=== PATIENT | male | born 1960 | race Caucasian/White ===

== ENCOUNTER → 2016-04-14 | Outpatient (REF) | payer MEDICARE, MEDICAID ==
[2016-04-14 14:27] LABS: FOLATE 13.1 NG/ML
[2016-04-17 00:06] LABS: PROTEIN C ANTIGEN 128 % (60-150); PROTEIN S ANTIGEN FREE 149 % (57-157); PROTEIN S ANTIGEN TOTAL 195 % (60-150)
[2016-04-22 00:09] LABS: SJOGREN'S ANTI SS-A <0.2 AI (0.0-0.9); SJOGREN'S ANTI SS-B <0.2 AI (0.0-0.9)
== END ==
LOC: M LABNEURO 13:00
PROVIDERS: ATTEND Psychiatry & Neurology Neurology
DX: I63.9 Cerebral infarction, unspecified (principal)

== ENCOUNTER 2017-01-19 10:23 | Inpatient (IN) | payer MEDICARE, MEDICAID ==
[~2017-01-19] VITALS: Ht 179.1 cm; Wt 65.7 kg
[2017-01-19] MEDS ORDERED: MOM 30ML SUSPENSION UDC PO PRN (11:45)
[2017-01-19 13:55] VITALS: BP 136/79
[2017-01-19] MEDS ORDERED: PROT40IN4 IV (15:15)
[2017-01-19] MEDS ORDERED: ENOX40IN3 SC (15:15)
[2017-01-19] MEDS ORDERED: NICODIS TD (15:15)
[2017-01-19] MEDS ORDERED: ATOR80TA59 PO (15:15)
[2017-01-19] MEDS ORDERED: ACET1TAB17 PO (15:15)
[2017-01-19] MEDS ORDERED: ASPI1TAB PO (15:15)
[2017-01-19] MEDS ORDERED: HYDR20VL IV (15:15)
[2017-01-19] MEDS ORDERED: CLOP75TA2 PO (15:15)
[2017-01-19] MEDS ORDERED: NIFE90TA3 PO (15:15)
[2017-01-19] MEDS ORDERED: PANT40TA2 PO (15:36)
[2017-01-19] MEDS ORDERED: PRED10TA2 PO (15:36)
[2017-01-19] MEDS ORDERED: NORT25CA2 PO (15:36)
[2017-01-19 18:18] LABS: BASO % 0.3 % (0.0-1.0); EOS # 0.1 10^3/uL (0.0-0.50); IMMATURE GRANULOCYTE % 0.3 % (0-0); LYMPH # 1.2 10^3/uL (1.5-4.5); LYMPH % 17.7 % (24.0-44.0); MEAN CORPUSCULAR HEMOGLOBIN 29.3 pg (27.0-33.0); MEAN CORPUSCULAR HGB CONC 33.3 g/dl (32.0-36.5); MEAN CORPUSCULAR VOLUME 87.9 fl (80.0-96.0); MONO # 0.5 10^3/uL (0.0-0.8); MONO % 7.6 % (0.0-5.0); NEUTROPHILS # 5.1 10^3/uL (1.8-7.7); NEUTROPHILS % 73.1 % (36.0-66.0); PLATELET COUNT, AUTOMATED 195 10^3/uL (150-450); RED CELL DISTRIBUTION WIDTH 14.3 % (11.5-14.5)
[2017-01-19 18:43] LABS: ALBUMIN 2.6 GM/DL (3.2-5.2); ALKALINE PHOSPHATASE 79 U/L (45-117); ALT/SGPT 22 U/L (12-78); ANION GAP 7 MEQ/L (8-16); AST/SGOT 21 U/L (7-37); BILIRUBIN,TOTAL 0.2 MG/DL (0.2-1.0); BLOOD UREA NITROGEN 13 MG/DL (7-18); CALCIUM LEVEL 7.8 MG/DL (8.5-10.1); CARBON DIOXIDE LEVEL 26 MEQ/L (21-32); CHLORIDE LEVEL 106 MEQ/L (98-107); CREATININE FOR GFR 1.12 MG/DL (0.70-1.30); GLOMERULAR FILTRATION RATE > 60.0 (>56); GLUCOSE, FASTING 108 MG/DL (70-105); MAGNESIUM LEVEL 1.7 MG/DL (1.8-2.4); POTASSIUM SERUM 3.8 MEQ/L (3.5-5.1); SODIUM LEVEL 139 MEQ/L (136-145); TOTAL PROTEIN 6.3 GM/DL (6.4-8.2)
[2017-01-19 20:00] VITALS: BP 139/93
[2017-01-19] MEDS ORDERED: MAG SULF 1GM/100ML (MAG RUN) 1 GM in APPROPRIATE DILUENT 1 EA IV ONE (21:00)
[2017-01-19] MEDS ORDERED: NORCO, ANEXSIA 5/325MG TABLET (HYDROcodone/ACETAMINOPHEN) PO ONE (21:00)
[2017-01-19] MEDS: DOCUSATE SODIUM 100 MG CAP PO SCH (21:19)
[2017-01-19] MEDS: ATORVASTATIN 20 MG TAB PO SCH (21:19)
--- NOTE | 2017-01-19 22:32 | CR ---
DATE OF CONSULTATION: 01/19/2017 PRIMARY CARE PROVIDER: None locally. INPATIENT HOSPITALIST ATTENDING: Dr. Jorge Bell REFERRING PHYSICIAN: Dr. Oconnor REASON FOR CONSULTATION: Management of chronic issues. CHIEF COMPLAINT: Left sided weakness, gaze deviation. HISTORY OF PRESENT ILLNESS: This is a 56-year-old male with a prior history of pulmonary embolus, deep vein thrombosis (DVT), prostate cancer with prostatectomy, nephrectomy, status post urostomy bag, was on chronic aspirin at home and presented to [facility] at [facility] due to acute onset of left-sided weakness on 01/15/2017 at 1600 hours with gaze deviation, dysarthria that started at 1600 hours and noted by the . The patient was air lifted via [facility] air ambulance to [facility] with presenting blood pressure 160/100, glucose 92. The patient had previously had a right MCA frontal branch territorial infarct in April 2016 with multiple watershed infarcts and had left against medical advice from the stroke service at [facility], taken himself off Xarelto despite recommendations for life long anticoagulation. The patient was found to have occlusion of the right internal carotid artery from its origin throughout his cervical course, as well as occlusion at the right M1 MCA from its origin along the majority of its course. Blood pressure parameters were given for recannulization. Echocardiogram saline bubble study on 01/17/2017 showed negative saline bubble study, ejection fraction of 55 to 60%. Trace mild mitral regurgitation. Trace pulmonic regurgitation. Mild tricuspid regurgitation. The patient did undergo right ICA stenting with complication of right petrous ICA dissection. MRI showed right MCA infarct and blunted right cerebellar infarct with right basal ganglia hemorrhage, systolic goal at that time was 100 to 160. He continued to complain of headaches, which were treated symptomatically. He was placed on labetalol, hydralazine. Anticoagulation was held temporarily due to hemorrhage and size of infarct, but he was resumed on aspirin and Plavix. The patient was transferred from [facility] to Physical Medicine and Rehabilitation service at [facility] to continue with his rehabilitation in order to resume activities of daily living. Hospitalist service was consulted for management of chronic issues. PAST MEDICAL HISTORY: 1. PE. 2. DVT 3. History of prostate cancer, status post prostatectomy. 4. Nephrectomy, status post urostomy bag. 5. Right MCA frontal branch CVA in April 2016, left against medical advice. PAST SURGICAL HISTORY: 1. Nephrectomy on the right, status post urostomy in January 2017. The patient underwent ICA stenting complicated with a right petrous ICA dissection and right basal ganglia hemorrhage. SOCIAL HISTORY: The patient lives with his spouse. He has an 80-pack year history of smoking. Denies any recreational drug use or alcohol use. Two level home with four steps. The patient is disabled. He has five adult children, age 22 to 36. Able to receive 24/7 supervision at home. FAMILY HISTORY: Unknown. REVIEW OF SYSTEMS: Complains of headache that is diffuse and bifrontal, left sided weakness. Otherwise, 12-point system negative. PHYSICAL EXAMINATION: Temperature 97.4, pulse 70, respiratory rate 18, blood pressure 136/79, 98% on room air. GENERAL: Pupils are equal, round and reactive to light and accommodation. Clear conjunctivae. Moist mucous membranes. Trachea is midline. NECK: Supple. Normocephalic, atraumatic. LUNGS: Clear to auscultation. No wheezing, rales or rhonchi. HEART: S1, S2. Sinus rhythm ABDOMEN: Soft, nontender, nondistended. Positive bowel sounds. EXTREMITIES: No cyanosis or clubbing. NEUROLOGIC: Positive left Babinski. No clonus, conjugate gaze. Will not track past the left midline. 5/5 motor function on the right upper and lower extremities. The patient has left sided 0/5 motor function on the left upper and lower extremities. LABORATORY DATA: White count 7, hemoglobin 9.4, hematocrit 28, platelet count 195. Sodium 139, potassium 3.8, chloride 106, bicarbonate 26, BUN 13, creatinine 1.1, glucose 108, magnesium 1.7, calcium 7.8, total bilirubin 0.2, AST 21, ALT 22, alkaline phosphatase 79, albumin 2.6, TSH 2.24. ASSESSMENT AND PLAN: This is a 56-year-old male, right handed with history of hypertension, hyperlipidemia, hypercoagulable, PEE and DVT in the past, prostate cancer, status post prostatectomy, bladder cancer with chemotherapy, nephrectomy with urostomy, previous ischemic infarct in right MCA distribution, left against medical advice from [facility] in April 2016. [id number] history of smoking. Presented with left sided weakness, found to have extensive acute on chronic occlusion of right ICA, extending to the right MONSERRAT and M1, status post TPA at [facility] in [place] and [facility] with right ICA stenting with complication of right petrous ICA infection. MRI shows right MCA and MONSERRAT infarct, punctate right cerebellar infarct and right basal ganglia hemorrhage. The patient has been placed on 3% saline. Supportive care for his headaches. Ultrasound showed 59% occlusion of stent. He was given labetalol, hydralazine for blood pressure control. Started on aspirin and Plavix for anticoagulation. Echo was negative for atrial thrombus. TSH and A1/c were unremarkable. The patient was started on atorvastatin, 80 mg daily. The patient was transferred to acute rehabilitation at [facility]. The hospitalist was asked to consult on chronic issues. CURRENT ISSUES: 1. Acute ischemic stroke with right basal ganglia hemorrhage Chronic MCA encephalomalacia. Chronic headaches.Right ICA MCA occlusion status post VERONICA with ICA stenting, stenosis of ICA stents. Etiology of the stroke was a large thrombus due to hypercoagulable state. Status post TPA on 01/15/2017. Status post MRE on 01/15/2017. Ultrasound Doppler on 01/16/2017 shows 50 to 69% occlusion of the stent. The patient was given labetalol/hydralazine for blood pressure control and was started on aspirin and Plavix. Echo was negative for PFO/atrial thrombus. He was placed on atorvastatin 80 mg daily. Continue with physical therapy (PT) and occupational therapy (OT). 2. Hypertension. Stable. Currently 136 systolic. Currently on Procardia 90 mg daily. 3. [id number] history of smoking. No prior history of emphysema or COPD. Significant risk factor for CVA with gas exchange. If needed oxygen if saturations are 88%, may provide with nasal cannula and nebulizer if he develops wheezing. 4. History of prostate cancer with prostatectomy, status post chemotherapy and nephrectomy with subsequent urostomy. The patient's creatinine is stable. Avoid nephrotoxins and renally dose all medications. 5. Hyperlipidemia. continue statin DVT prophylaxis: lovenox subcutaneously. The patient will be assigned to Dr. Jorge Bell, who will assist with medical issues while the patient is in acute rehabilitation. JAMMIE
[2017-01-20] MEDS: ACETAMINOPHEN TAB 650MG DOSE (2X325MG) PO PRN ×3 (03:41→21:05)
[2017-01-20 06:00] VITALS: BP 128/82
[2017-01-20 07:16] LABS: BASO % 0.4 % (0.0-1.0); EOS # 0.2 10^3/uL (0.0-0.50); EOS % 2.7 % (0.0-3.0); IMMATURE GRANULOCYTE % 0.4 % (0-0); LYMPH # 1.8 10^3/uL (1.5-4.5); LYMPH % 23.5 % (24.0-44.0); MEAN CORPUSCULAR HEMOGLOBIN 29.3 pg (27.0-33.0); MEAN CORPUSCULAR HGB CONC 33.4 g/dl (32.0-36.5); MEAN CORPUSCULAR VOLUME 87.7 fl (80.0-96.0); MONO # 0.7 10^3/uL (0.0-0.8); MONO % 8.6 % (0.0-5.0); NEUTROPHILS # 4.9 10^3/uL (1.8-7.7); NEUTROPHILS % 64.4 % (36.0-66.0); PLATELET COUNT, AUTOMATED 209 10^3/uL (150-450); RED CELL DISTRIBUTION WIDTH 14.3 % (11.5-14.5); WHITE BLOOD COUNT 7.5 10^3/uL (4.0-10.0)
[2017-01-20 07:42] LABS: ALBUMIN 2.7 GM/DL (3.2-5.2); ALBUMIN/GLOBULIN RATIO 0.71 (1.00-1.93); ALKALINE PHOSPHATASE 79 U/L (45-117); ALT/SGPT 29 U/L (12-78); ANION GAP 10 MEQ/L (8-16); AST/SGOT 30 U/L (7-37); BILIRUBIN,TOTAL 0.3 MG/DL (0.2-1.0); BLOOD UREA NITROGEN 13 MG/DL (7-18); CALCIUM LEVEL 8.3 MG/DL (8.5-10.1); CARBON DIOXIDE LEVEL 24 MEQ/L (21-32); CHLORIDE LEVEL 107 MEQ/L (98-107); CREATININE FOR GFR 1.21 MG/DL (0.70-1.30); GLOMERULAR FILTRATION RATE > 60.0 (>56); GLUCOSE, FASTING 95 MG/DL (70-105); POTASSIUM SERUM 3.8 MEQ/L (3.5-5.1); SODIUM LEVEL 141 MEQ/L (136-145); TOTAL PROTEIN 6.5 GM/DL (6.4-8.2)
[2017-01-20] MEDS: NYSTATIN 500,000 U/5 ML SUSP UDC SSP SCH ×3 (09:00→21:04)
[2017-01-20] MEDS: DOCUSATE SODIUM 100 MG CAP PO SCH ×2 (09:00→21:00)
[2017-01-20] MEDS: ENOXAPARIN 40 MG/0.4 ML SYRINGE (J1650) SC SCH (09:14)
[2017-01-20] MEDS: CLOPIDOGREL 75 MG TAB PO SCH (09:15)
[2017-01-20] MEDS: NIFEdipine 30 MG XL TAB PO SCH (09:15)
[2017-01-20] MEDS: ASPIRIN 81 MG ENTERIC TAB PO SCH (09:15)
[2017-01-20] MEDS: PANTOPRAZOLE 40MG TAB (PROTONIX) PO SCH (09:15)
--- NOTE | 2017-01-20 11:29 | PMRHPE ---
DATE OF ADMISSION: 01/19/2017 REASON FOR ADMISSION: Right middle cerebral artery cerebrovascular accident (CVA ) treated with tPA on 01/15/2017 with secondary watershed intraparenchymal hemorrhage including basal ganglia causing dysphagia, dysarthria, left sensory motor deficits. HISTORY OF PRESENT ILLNESS: The patient is a 56-year-old white male who has been disabled by multiple medical problems. This right-handed gentleman had prior right MCA stroke in April of 2016, atherosclerotic cardiovascular disease, also including hypertension, hyperlipidemia. The patient also with prior bladder cancer and prostate cancer with prostatectomy and nephrostomy performed and prior carotid artery disease with a stent which occluded. The patient has started in physical, occupational and speech therapy. He does have some dysphagia with troubles having sensation in the left mouth with left facial droop, right tongue deviation, left sensory neglect as well as left hemiparesis with returning tone. He was felt to be able to participate in and benefit from acute intensive rehabilitation with physical therapy (PT)/occupational therapy (OT) and speech therapy and was transferred here today for neurorehabilitation of his CVA. FAMILY HISTORY: Noncontributory. SOCIAL HISTORY: The patient lives with his and foster children. Prior to this event he was able to perform basic activities of daily living (ADLs). He does not use tobacco, alcohol or illicit drugs, however, has been challenged by clotting disorder. ALLERGIES: Patient with no known drug allergies. REVIEW OF SYSTEMS: Negative except for symptoms noted above and chronic headache on the top of his head with some relief with analgesics and heating pad. MEDICATIONS ON ADMISSION: - Protonix 40 mg daily - enteric coated aspirin 81 mg a day - Plavix 75 mg daily - Procardia XL 90 mg daily - Lovenox 40 mg subcutaneous daily - Colace 100 mg twice a day - atorvastatin 80 mg at bedtime - Dulcolax depository I am changing to Dulcolax tablet as needed constipation - milk of magnesia as needed constipation - Tylenol 650 mg every 6 hours as needed for pain or fever PHYSICAL EXAMINATION: GENERAL: The patient is an average height, 5 foot 10-1/2 inch tall, with a slight frame and lowly muscled middle-aged gentleman, he weights 64 kg. He is alert and well oriented and tends to lean and lay on his left side, which is his paretic side. He is in minimal distress other than his sensory motor deficits. HEENT: Shows a left facial droop, right tongue deviation. The patient tends to gaze straight ahead and to the right principally. He does show some tracking to the left at this time. He tends to lean to the left and roll onto the left side when left to himself. NECK: supple, nontender. LUNGS: Clear to auscultation in all edge. COR: Shows a regular rate and rhythm with normal S1, S2. The patient with 2 out of 4 bilateral radial pulses. ABDOMEN: Shows the urinary ostomy site and collection bag, but is nontender with normal bowel sounds throughout. EXTREMITIES: Show good normal tone, strength and range on the right upper and lower extremities with early tone in the left shoulder and elbow, hip and knee, but marked weakness distally in the 1 to 2-/5 range, but proximal showing 3+ for the shoulder, elbow, hip and knee on the left. Hands 4+ to 5, stronger on the right. NEURO: The patient with some decrease in light touch and vibration in the left side. Left UE & LE show increased tone and some neglected. Mood has a little bit of flattening. ASSESSMENT AND PLAN: Diagnosis: 1. Rehabilitation of right middle cerebral artery CVA. Treated with tPA, with secondary watershed infarct. This has left patient with dysarthria, dysphagia, left hemiparesis with early tone and proximal recovery, but notable neglect to the left. Patient also with decreased awareness and tendency to pocket secretions to the left and with facial droop has drooling. I feel patient would benefit from acute intensive rehabilitation with physical, occupational, speech therapy with ongoing education of patient and family from rehabilitation, nurse and physiatry. I think the patient needs neuromuscular facilitation of the left upper and lower extremity with cuing and training to address attention and awareness of the left side and protect it due to the sensory deficits and agnosia/neglect. Some elements on the left though patient does seem to be able to recognize the left upper and lower extremity as he is able to voluntary motor with them. Patient currently on NDDI-1 diet and he reports that speech was about to advance him to soft foods versus pureed. Records and patient both agree that he is using thin liquids. Overall I do feel the patient is motivated and capable of participating in the program and anticipate a 17 day estimated length of stay. 2. Bladder cancer, status post diverting nephrostomy and prostatectomy with prostate cancer. Will continue with using nephrostomy drainage. 3. Clotting disorder. The patient has had repeated deep venous thrombosis (DVT), pulmonary embolism (PE), and at least two CVAs as well as including a carotid stent. Needs to be on significant treatment for this. I will continue the Lovenox, Plavix and aspirin at this time. The patient was recommended to transition off the Lovenox going home to just the Plavix and aspirin. This management of clots will help with the DVTs along with use of thromboembolism deterrent (RIGO) hose and sequential stockings. 4. Atherosclerotic cardiovascular disease. I will go ahead and continue the Procardia XL 90 for hypertension and atorvastatin 80 mg for cholesterol control. To assist in the management of this gentleman, medicine consult has been sent. POST ADMISSION PHYSICIAN EVALUATION: The patient is doing better than general description in chart showing significant early motor recovery in the left upper and lower extremity in a proximal to distal fashion. I do feel he is highly motivated to return home with his and more adaptive compensations as he has had to do before with prior illness and deficits from his cancers as well as the prior CVA. I do feel he is capable of tolerating participation three hours a day of physical, occupational and speech therapy and that his prognosis for returning home is good with the family with an estimated length of stay of 17 days. Time spent on chart review, HPI and documentation is greater than 70 minutes. JAMMIE
--- NOTE | 2017-01-20 12:11 | IPNPDOC ---
PM&R Progress Note Regulatory Internship Progress Note DATE OF SERVICE: 01/20/17 DATE OF ADMISSION: Jan 19, 2017 at 13:45 INPATIENT REHABILITATION ADMISSION DAY: #2 SUBJECTIVE: The patient is a 56-year-old white male who has been disabled by multiple medical problems. This right-handed gentleman had prior right MCA stroke in April of 2016, atherosclerotic cardiovascular disease, also including hypertension, hyperlipidemia. The patient also with prior bladder cancer and prostate cancer with prostatectomy and nephrostomy performed and prior carotid artery disease with a stent which occluded. The patient has started in physical, occupational and speech therapy. He does have some dysphagia with troubles having sensation in the left mouth with left facial droop, right tongue deviation, left sensory neglect as well as left hemiparesis with returning tone. Patient without significant pain or other complaints today. ALLERGIES: See Below MEDICATIONS: Reviewed, see below. OBJECTIVE: VITAL SIGNS: Please see below. PHYSICAL EXAMINATION: GENERAL: Average height slight middle-age white male who looks older than stated age of 56. Patient still tending to lean to the left with some left neglect. It appears to be in no other distress. HEENT: Left facial droop with right tongue deviation but atraumatic. CARDIOVASCULAR: Regular rate and rhythm with normal S1 and S2. 2/4 bilateral radial pulses. LUNGS: [place] clear to auscultation. ABDOMEN: Benign with normal bowel sounds in all quadrants and nephrostomy bag in place. NEUROLOGICAL: Alert and oriented to person, place, general time and situation. No significant change in left hemiparesis. SKIN: Grossly intact LABORATORY DATA: Reviewed. Please see below. MICROBIOLOGY: Please see below. IMAGING: No new imaging. DVT prophylaxis ordered?: Lovenox, aspirin, RIGO hose and sequential compressive stockings. ASSESSMENT AND PLAN: 1. Rehabilitation of CVAs with left hemisensory motor deficits: Patient starting evaluations today with physical, occupational and speech foreign language professor all achieved. We will review the patient further at rehabilitation team rounds this afternoon. My estimated length of stay is 17 days. REHAB. TEAM ROUNDS: The patient is having notable left visual spacial problems and desires to remain in bed too much. We will work to increase him being up and having to attend to the left and use mirrors to reinforce left awareness. Patient reviewed by team today and Anticipated Date of Discharge to home with family is 02/04/17. Please see initial therapy evaluations attached below. 2. Mild anemia with H&H of 9.8 and 29.4% today on 01/20/17. We will continue to observe. 3. Hypo-magnesemia: Patient received 1 g of magnesium IV last night. I will go ahead and recheck magnesium tomorrow along with a basic metabolic panel. Medicine services to continue to follow. 4. Nutrition: Albumin is reduced to 2.7 so we will see how patient is doing on eating and he may possibly benefit from Ensure. TIME SPENT: Chart Review, examination and documentation require greater than 25 minutes. Patient: Enrique Guadalupe : 1960 Age/Sex: 56/M Unit#: [id number] Room/Bed: [place] [address] User: Gaby Corona OT OT Date: 01/20/17 14:37 Type: OT Evaluation Time In * 09:30 Time Out * 10:35 OT Treatment Time-Minutes * 65 mins Type of Therapy Provided * Individual Unit * Acute Inpatient Rehab Occupational Therapy Evaluation * Initial Diagnosis * R MCA CVA, R hemiparesis/sens, dysarthria Doctor's Order * Evaluation & Treatment Doctor's Order Details * Eval and treat 1.5 hours per day. 5 days per week. History of Present Illness * Pt air lifted to [facility] due to weakness/dysarthria. Pt found to have right middle cerebral artery cerebrovascular accident (CVA) treated with tPA on 01/15/2017 with secondary watershed intraparenchymal hemorrhage including basal ganglia causing dysphagia, dysarthria, left sensory motor deficits. Precautions * Fall * Other Other Precautions * L neglect Subjective * Pt supine upon OT arrival, agreeable to eval. Prior to admission Pt was Independent ADL's * Yes Prior to Admission Other Assist Pt Required * Pt reports he was independent with all ADL/IADL at baseline, including driving. Pain: Start of Session * 3 Pain Assessment Label * Head * Description Ache * Pain Note Pt c/o headache, stating warm K-pad improves pain. Upper Extremity Dominance * Right Range of Motion Assessment Label * Bilateral Shoulder Elbow Wrist * Active or Passive Active * ROM Within Normal Limits Within Functional Limits * Comment RUE WNL, LUE WFL to 90 deg. shldr flex Muscle Tone Assessment Label * Bilateral * Comment Increased Strength Assessment Label * Left * Upper Extremity Strength Location Shoulder Elbow Wrist * Upper Extremity Status Strength 3-/5 * Comment: RUE 4-/5 Movement Assessment Label * Left * Upper Extremity Status Gross Motor Within Functional Limits * Other-Upper Extremity Status Gross Motor RUE WNL; LUE increasing gross motor throughout LUE- able to flex shoulder to ~90 degrees, elbow WFL with limited coordination, minimal hand/finger function throughout median nerve distribution Upper Body Muscle Tone Label * Left * Upper Extremity Status Fine Motor Impaired * Other-Upper Extremity Status Fine Motor RUE WNL, LUE digits 3-5 trace strength Sensation Assessment Label * Bilateral * Upper Extremity Status Sensation Within Normal Limits Edema Present * No Eating (Feeding) * Minimum Assist Grooming (Hygiene) * Minimum Assist Bathing * Moderate Assist Dressing-Upper Body * Minimum Assist Dressing-Lower Body * Minimum Assist Toileting * Total Assist Toilet/Commode Transfer * Minimum Assist Transfers * Minimum Assist Bed Mobility * Standby Assist Wheelchair * Maximum Assist ADL Status Note * Pt transferred supine to sit EOB with VCs to attend to LUE/LLE placement due to decreased awareness of L side. Pt completed sit<>stand and stand pivot to w/c toward R side with min assist for safety. Pt then self propelled w/c with min/mod assist to bathroom, ~15'. In bathroom, pt completed sponge bathing- pt able to wash chest, abdomen, LUE, ronnie area, and thighs. Pt requires assist for washing RUE, distal LEs, and buttocks in standing with min assist due to L lateral lean while up. Pt completed sit<>stand at sink with CGA initially, though fatigues quickly, requiring increased assist to maintain standing. UB dressing- pt able to thread LUE with minimal assistance, then able to thread LUE and pull overhead. LB dressing- pt requires minimal assistance to thread LLE into pants, though able to thread RLE into pants, and requires min assist to stand to pull up pants. Pt able to brush teeth with set-up initially, though demonstrates mod/max spillage, requiring increased assist to clean up following task. Pt able to wash face with set-up only. Pt asking to return to supine throughout evaluation, requiring ongoing encouragement/education re: role of OT and importance of EOB/OOB activity. Pt then attempted to self propel w/c toward room/EOB, though requires max assist to complete task due to L neglect. Pt transferred w/c to EOB with min assist and sit EOB to supine with CGA. Pt declines scooting toward HOB and states he would prefer to lay in middle of bed. Ongoing education re: safety. Pt requires assist x2 to boost to HOB. All needs met, call light in reach. Bell in room to empty urostomy for pt. A. Eating (include only those with PO intake): * 04.Sup/Touch Assist Eating Comments: * See ADL note. B. Oral Hygiene (includes gums in edentulous pts): * 04.Sup/Touch Assist Oral Hygiene Comments: * See ADL note. C. Toileting Hygiene (not transfers): * 01.Dependent Toileting Hygiene Comments: * See ADL note. E. Shower/Bathe Self (not transfers, can be sponge bath): * 03.Partial/Mod Assist Shower/Bathe Self Comments: * See ADL note. F. Upper Body Dressing (includes bra, not hospital gown): * 04.Sup/Touch Assist Upper Body Dressing Comments: * See ADL note. G. Lower Body Dressing (includes briefs and knee braces): * 04.Sup/Touch Assist Lower Body Dressing Comments: * See ADL note. H. Putting on/taking off footwear (includes TEDS and AFO): * 02.Substantial/Max Assist Putting on/taking off footwear Comments: * See ADL note. Sitting: Static * G- Sitting: Dynamic * F+ Standing: Static * F Standing: Dynamic * F Functional Endurance * Good Living Quarters * House Number of Steps Inside Home * 0 Number of Steps Outside Home * 5 Other Home Accessibility Comments * Pt reports his family is installing full bathroom on 1st floor with walk-in shower, vs current 1/2 bath on 1st floor. Pt reports family will move his bedroom to 1st floor, as it is previously in basement. Visual Acuity * Impaired Visual Spatial * Impaired Hearing * Intact Right/Left Neglect * Present Midline * Impaired Proprioceptive/Kinesthesia * Impaired Orientation * Intact Memory * Impaired Attention * Intact Follows Commands * Intact Safety Awareness * Impaired Problem Solving * Impaired Behavior/Affect * Intact Motivation * Intact Family/Support * Intact Perception/Cognition/Psychosocial Comment * Pt A&Ox3, polite and cooperative with encouragement/education throughout evaluation. 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 Discharge Recommendations * Home w/services Occupational Therapy Evaluation Notes * Pt demonstrates significantly decreased independence from baseline due to recent MCA CVA. Pt will benefit from ongoing skilled OT to maximize independence with ADL, functional transfers, safety awareness, strengthening, and visual perceptual skills for safe d/c to least restrictive environment. OT Recommendations * OOB all meals, encourage OOB throughout the day for increased strength/endurance. See Acute In-Patient Rehab POC * Yes OT Interventions * Functional Training * Safety/Precautions * D/C Needs * HEP * ADL Training * Bed Mobility * Therapeutic Exercise * Balance Activities * Pt/Family Education Patient Education Completed * Yes Patient: Enrique Guadalupe : 1960 Age/Sex: 56/M Unit#: [id number] Room/Bed: M4144/01 User: Juan Lee, PT PT Date: 01/20/17 11:13 Type: PT Evaluation Time In * 11:10 Time Out * 11:55 PT Treatment Time-Minutes * 45 mins Physical Therapy Evaluation * Initial Type of Therapy Provided * Individual Diagnosis * ischemic Rt MCA stroke Doctor's Order * Evaluation & Treatment Doctor's Order Detail * Activity per PT/OT History of Present Illness * Patient was admitted on 01/19/17. Patient's medical history is charted and was reviewed. Subjective * Patient is agreeble to PT evaluation. Patient was supine resting in bed prior to session. joined at beginning of evaluation. Precautions * Fall Unit * Acute Inpatient Rehab Prior to Admission Pt Independent with Gait * Yes Prior to Admission Patient Lives * With Significant Other Prior to Admission Pt Lives with Comment * lives with Prior to Admission Assistive Devices * Cane * Walker,Wheeled Prior to Admission Other Assist Pt Requires * Patient reports he has access to a cane and a 2WW at home, however was completely independent prior to admission. Indepedent with all activities. Pain: Start of Session * 2 Pain Comment * Patient reports 2/10 pain in his head, does not change throughout evaluation. Pain Assessment Label * Head * Description Ache Upper Extremity ROM Label * Right Shoulder Elbow Wrist Fingers * Active or Passive Active * ROM Within Normal Limits Within Funct. Limits * Upper Extremity ROM Comment decreased Lt UE AROM. Lower Extremity ROM Label * Bilateral Hip Knee Ankle * Active or Passive Active * ROM Within Normal Limits Within Functional Limits Upper Extremity Strength Label * Right * Upper Extremity Status Strength Location Shoulder Elbow Wrist Radius Grinder * Upper Extremity Status Strength Within Funct. Limits * Upper Extremity Strength Comment Lt UE strength decreased, see OT evaluation. Lower Extremity Strength Label * Right Hip Knee Ankle * Lower Extremity Status Strength 4/5 * Lower Extremity Status Strength Comment Lt hip: 3+/5 knee flex/ext: 3+/5 ankle DF/PF: 3+/5 Sensation Assessment Label * Left * Sensation Status Impaired * Other Sensation LE: Patient reports "it feels different" Lt compared to the Rt side however is able feel dermatomes on the Lt. Bathing * Not Tested Dressing * Not Tested Toileting * Not Tested Transfer: Supine to Sit * Contact Guard Assist Transfer: Sit to Supine * Contact Guard Assist Transfer: Rolling * Not Tested Transfer: Sit to Stand * Minimum Assist Transfer: Stand to Sit * Contact Guard Assist Transfer: Bed to Chair * Minimum Assist Transfer: Chair to Bed * Minimum Assist Transfer: Toilet/Commode * Not Tested Transfer Comment * CGA for bed mobility, min A for sit to stand, CGA for stand to sit transfer and min A bed to chair transfer. Patient is mildly impulsive throughout. Stand pivot performed to the Rt side x2. Blocked Lt LE for stand pivot transfer for safety as Lt knee margo in standing. Gait Deviations * Ambulation was not appropriate this session as patient has difficulty shifting weight onto Lt LE. Proprioception is also impaired with Lt LE. Wheelchair Distance * 50 feet Wheelchair Mobility Level of Assist * Moderate Assist Wheelchair Mobility Comment * Mod A for safety as patient is consistently turning too much to the Lt, decreased safety awareness. Stair Skills Required * Yes Level of Assist for Stairs * Not Tested Stairs Comment * Not appropriate this date. A. Roll Left and Right: * 04.Sup/Touch Assist B. Sit to Lying: * 04.Sup/Touch Assist C. Lying to Sitting on Side of Bed: * 04.Sup/Touch Assist D. Sit to Stand: * 04.Sup/Touch Assist E. Chair/Pim-sd-Jsufi Transfer: * 03.Partial/Mod Assist F. Toilet Transfer: * 88.Not Attempted G. Car Transfer: * 88.Not Attempted H. Does the patient walk?: * 1. No, indicated I. Walk 10 Feet: * 88.Not Attempted J. Walk 50' with Two Turns: * 88.Not Attempted K. Walk 150 Feet: * 88.Not Attempted L. Walking 10' on uneven surfaces: * 88.Not Attempted M. 1 Step (curb): * 88.Not Attempted N. 4 Steps (with or without railing): * 88.Not Attempted O. 12 Steps (with or without railing): * 88.Not Attempted P. Picking up Object from the Floor (from a standing): * 88.Not Attempted Q. Does the patient use a w/c (other than just transport): * 1. Yes R. Wheel 50' with 2 Turns(seated in w/c): * 03.Partial/Mod Assist RR. What type of w/c?: * 1. Manual S. Wheel 150' (seated in w/c): * 88.Not Attempted SS. What type of w/c?: * 1. Manual Sitting: Static * G- Sitting: Dynamic * F+ Standing: Static * F+ Standing: Dynamic * F Functional Balance Comment * Sitting balance assessed sitting at EOB, standing balance assessed standing at RW. Patient has difficulty weight shifting onto Lt LE, knee margo. Decreased safety awareness in standing and decreased proprioception. Patient has difficulty maintaining documentation spec on walker with Lt UE. Living Quarters * House Number of Steps Inside Home * 15 Number of Steps Outside Home * 3 Railing: Outside Steps * Both Sides Equipment at Home * Rolling Walker * Cane Other Equipment Needs for Home * will continue to assess Other Home Accessibility Comments * reports that they plan to move him down to the main floor so he will not have to access full flight of stairs. Hearing * Intact Orientation * Person * Place * Date Memory * Intact Follows Commands * Impaired Safety Awareness * Impaired Family Support * Intact Perception/Cognition/Psychosocial Comment * is very supportive. Mild impulsivity, decreased safety awareness. Requires redirecting throughout to stay on task. Coordination * Impaired Coordination Comment * Impaired with Lt LE Home Safety Status * Not Safe Patient Not Safe for Discharge Due to * impaired functional mobility Discharge Recommendations * Home w/services Physical Therapy Evaluation Note * Patient demonstrates impaired functional mobility. Patient gets agitated in sitting, continues to ask to go back to bed throughout evaluation. Patient demonstrates decreased proprioception with the Lt LE, decreased safety awareness, was not appropriate to attempt ambulation this date. Patient will benefit from skilled therapy services to address the above listed impairments. Patient was supine resting in bed with call finn in reach following PT evaluation. Nurse, Nelli medina. PT Recommendations * Stand pivot to the Rt, block Lt LE, use gait belt. OOB to chair for all meals. See Acute In-Patient Rehab POC * Yes PT Interventions * Gait Training * Wheelchair Mobility * Therapeutic Excercise * Functional Training * Bed Mobility * Balance Activities * Safety/Precautions * HEP * Pt./Family Education * D/C Needs * Neuro Re-Education Patient Education Completed * Yes Patient: Enrique Guadalupe : 1960 Age/Sex: 56/M Unit#: [id number] Room/Bed: M4144/01 User: Etelvina Dinh [facility] Date: 01/20/17 10:41 Type: ST: Clinical Swallowing Evalua... History * CVA/TIA Other History * CVA April 2016 Bladder cancer Verbal expression * Adequate Verbal Expression Comment * dysarthric production d/t hx of /r/ distortion and weak right side. Intelligibily is adequate Able to follow commands * Adequate Cognition * Functional * Cooperative Cognition Comment * slight memory deficit Nutrition/Intake method * Total Oral Feeding status * Independent Current diet * Puree * Thin liquid Oral Structures * Teeth in Poor Repair Face and lip function * Impaired * Decreased ROM * Decreased Strength * Decreased lip rounding Tongue function * Decreased Strength Left * Deviates (L)/ Protrusion Velar functioning * Adequate Laryngeal function * Adequate Speech Clarity * Good Thin Liquids - Oral stage difficulties * None Thin Liquids - Pharyngeal stage difficulties * None Suspected Thin Liquids - Severity of impairment * Adequate Puree - Oral stage difficulties * None Puree - Pharyngeal stage difficulties * None Suspected Puree - Severity * WFL Aspiration Risk * Moderate Problem List * significant decreased sensation in the left oral cavity. Noted anterior spillage on the left Recommended Diet * Pureed Recommended Liquids * Regular/Thin Liquid Recommended positioning * Upright Recommended Oral Care * Three Times per Day Recommended compensatory strategies * Bolus Placement Right * Alternate Liq w/Solids Recommend Dysphagia Therapy * Yes Other Recommendations * Meds placed on the right side in puree assist followed by liquid wash. consider something for possible thrush After Evaluation/Treatment Report Provided to: * Dr. Duke and ARU Team Patient: Enrique Guadalupe : 1960 Age/Sex: 56/M Unit#: [id number] Room/Bed: M4144/01 User: Etelvina Dinh [facility] Date: 01/20/17 11:10 Type: ST: Cognitive Linguistic Eval Location of Evaluation * Bedside Cognitive Communication Evaluation Components * Chart Review * Patient Review * Non-Standard Testing Other Evaluation Components * BCAT Oral Motor/Speech Skills WFL * No - left side weakness w/dysarthric speech production Hearing WFL * Yes Clinical Observations * Vision Impaired * Oriented * Alert * Socially Appropriate Cognitive-Communication: Other Clinical Observations * Pt. reports blind in left eye. Throughout testing, Pt. had a difficult time seeing stimulus items. Commented that he stills drives Behavioral Observation Comment * easily fatigued Patient Orientation * Adequate Pragmatics * WFL Cognitive-Communication Memory Comment * decreased working memory and short term memory Reasoning * WFL Executive Function * Dec. Judgement Cognitive-Communication: Other Executive Function * rpts driving with familiarity of his surroundings knowing eyesight is poor Severity of Cognitive-Communication Deficit * Mild Recommendations * Sp. Tx for Cog-Comm Skill After Evaluation/Treatment Report Provided to: * Dr. Duke and ARU Team Allergies Coded Allergies: No Known Allergies (Unverified , 01/19/17) Vital Signs Vital Signs Date Time Temp Pulse Resp B/P (MAP) Pulse Ox O2 Delivery O2 Flow Rate FiO2 01/20/17 09:15 128/82 01/20/17 06:00 97.8 71 18 98 Room Air Laboratory Data CBC/BMP Laboratory Tests 01/19/17 18:01 Red Blood Count 3.21 L, Mean Corpuscular Volume 87.9, Mean Corpuscular Hemoglobin 29.3, Mean Corpuscular Hemoglobin Concent 33.3, Red Cell Distribution Width 14.3, Neutrophils (%) (Auto) 73.1 H, Lymphocytes (%) (Auto) 17.7 L, Monocytes (%) (Auto) 7.6 H, Eosinophils (%) (Auto) 1.0, Basophils (%) ( Auto) 0.3, Neutrophils # (Auto) 5.1, Lymphocytes # (Auto) 1.2 L, Monocytes # ( Auto) 0.5, Eosinophils # (Auto) 0.1, Basophils # (Auto) 0.0, Calcium Level 7.8 L , Aspartate Amino Transf (AST/SGOT) 21, Alanine Aminotransferase (ALT/SGPT) 22, Alkaline Phosphatase 79, Total Bilirubin 0.2, Total Protein 6.3 L, Albumin 2.6 L 01/20/17 06:58 Red Blood Count 3.34 L, Mean Corpuscular Volume 87.7, Mean Corpuscular Hemoglobin 29.3, Mean Corpuscular Hemoglobin Concent 33.4, Red Cell Distribution Width 14.3, Neutrophils (%) (Auto) 64.4, Lymphocytes (%) (Auto) 23.5 L, Monocytes (%) (Auto) 8.6 H, Eosinophils (%) (Auto) 2.7, Basophils (%) ( Auto) 0.4, Neutrophils # (Auto) 4.9, Lymphocytes # (Auto) 1.8, Monocytes # (Auto ) 0.7, Eosinophils # (Auto) 0.2, Basophils # (Auto) 0.0, Calcium Level 8.3 L, Aspartate Amino Transf (AST/SGOT) 30, Alanine Aminotransferase (ALT/SGPT) 29, Alkaline Phosphatase 79, Total Bilirubin 0.3, Total Protein 6.5, Albumin 2.7 L Labs 24H Laboratory Tests 2 01/19/17 18:01: Immature Granulocyte % (Auto) 0.3H, White Blood Count 7.0, Red Blood Count 3.21L , Hemoglobin 9.4L, Hematocrit 28.2L, Mean Corpuscular Volume 87.9, Mean Corpuscular Hemoglobin 29.3, Mean Corpuscular Hemoglobin Concent 33.3, Red Cell Distribution Width 14.3, Platelet Count 195, Neutrophils (%) (Auto) 73.1H, Lymphocytes (%) (Auto) 17.7L, Monocytes (%) (Auto) 7.6H, Eosinophils (%) (Auto) 1.0, Basophils (%) (Auto) 0.3, Neutrophils # (Auto) 5.1, Lymphocytes # (Auto) 1.2L, Monocytes # (Auto) 0.5, Eosinophils # (Auto) 0.1, Basophils # (Auto) 0.0, Immature Granulocyte # (Auto) 0.0, Nucleated Red Blood Cells % (auto) 0.0, Anion Gap 7L, Glomerular Filtration Rate > 60.0, Blood Urea Nitrogen 13, Creatinine 1.12, Sodium Level 139, Potassium Level 3.8, Chloride Level 106, Carbon Dioxide Level 26, Calcium Level 7.8L, Aspartate Amino Transf (AST/SGOT) 21, Alanine Aminotransferase (ALT/SGPT) 22, Alkaline Phosphatase 79, Total Bilirubin 0.2, Total Protein 6.3L, Albumin 2.6L, Magnesium Level 1.7L, Albumin/ Globulin Ratio 0.70L, Thyroid Stimulating Hormone (TSH) 2.240 01/20/17 06:58: Immature Granulocyte % (Auto) 0.4H, White Blood Count 7.5, Red Blood Count 3.34L , Hemoglobin 9.8L, Hematocrit 29.3L, Mean Corpuscular Volume 87.7, Mean Corpuscular Hemoglobin 29.3, Mean Corpuscular Hemoglobin Concent 33.4, Red Cell Distribution Width 14.3, Platelet Count 209, Neutrophils (%) (Auto) 64.4, Lymphocytes (%) (Auto) 23.5L, Monocytes (%) (Auto) 8.6H, Eosinophils (%) (Auto) 2.7, Basophils (%) (Auto) 0.4, Neutrophils # (Auto) 4.9, Lymphocytes # (Auto) 1.8, Monocytes # (Auto) 0.7, Eosinophils # (Auto) 0.2, Basophils # (Auto) 0.0, Immature Granulocyte # (Auto) 0.0, Nucleated Red Blood Cells % (auto) 0.0, Anion Gap 10, Glomerular Filtration Rate > 60.0, Blood Urea Nitrogen 13, Creatinine 1.21, Sodium Level 141, Potassium Level 3.8, Chloride Level 107, Carbon Dioxide Level 24, Calcium Level 8.3L, Aspartate Amino Transf (AST/SGOT) 30, Alanine Aminotransferase (ALT/SGPT) 29, Alkaline Phosphatase 79, Total Bilirubin 0.3, Total Protein 6.5, Albumin 2.7L, Albumin/Globulin Ratio 0.71L Current Medications Current Medications Current Medications Acetaminophen (Tylenol Tab) 650 mg Q6HP PRN PO PAIN OR FEVER Last administered on 01/20/17 03:41; Start 01/19/17 at 11:45; Stop 02/18/17 at 11:44 Aspirin (Ecotrin) 81 mg DAILY PO Last administered on 01/20/17 09:15; Start 01/20/17 at 09:00; Stop 02/19/17 at 08:59 Atorvastatin Calcium (Lipitor) 80 mg QHS PO Last administered on 01/19/17 21: 19; Start 01/19/17 at 21:00; Stop 02/18/17 at 20:59 Bisacodyl (Dulcolax Tab) 5 mg DAILYPRN PRN PO CONSTIPATION; Start 01/19/17 at 11:45; Stop 02/18/17 at 11:44 Clopidogrel Bisulfate (PLAVix) 75 mg DAILY PO Last administered on 01/20/17 09:15; Start 01/20/17 at 09:00; Stop 02/19/17 at 08:59 Docusate Sodium (Colace) 100 mg BID PO Last administered on 01/19/17 21:19; Start 01/19/17 at 21:00; Stop 02/18/17 at 20:59 Enoxaparin Sodium (Lovenox) 40 mg DAILY SC Last administered on 01/20/17 09: 14; Start 01/20/17 at 09:00; Stop 01/25/17 at 08:59 Home Med (Med Rec Complete!) ASDIRECTED XX ; Start 01/19/17 at 15:45; Stop at 15:47; Status DC Magnesium Hydroxide (Milk Of Magnesia) 30 ml DAILYPRN PRN PO CONSTIPATION; Start 01/19/17 at 11:45; Stop 02/18/17 at 11:44 Nifedipine (Procardia Xl) 90 mg DAILY PO Last administered on 01/20/17 09:15 ; Start 01/20/17 at 09:00; Stop 02/19/17 at 08:59 Nystatin (Mycostatin) 5 ml TID SSP ; Start 01/20/17 at 09:00; Stop 01/26/17 at 23:55 Pantoprazole Sodium (Protonix) 40 mg DAILY PO Last administered on 01/20/17 09:15; Start 01/20/17 at 09:00; Stop 02/19/17 at 08:59 SUJIT DUKE MD Jan 20, 2017 12:11
[2017-01-20 14:00] VITALS: BP 131/67
[2017-01-20] MEDS ORDERED: SLF 3 ML SYR IV PRN (15:15)
[2017-01-20 20:00] VITALS: BP 114/62
[2017-01-20] MEDS: ATORVASTATIN 20 MG TAB PO SCH (21:05)
[2017-01-20] MEDS: SLF 3 ML SYR IV SCH (22:00)
[2017-01-21] MEDS: ACETAMINOPHEN TAB 650MG DOSE (2X325MG) PO PRN ×2 (03:40→12:47)
[2017-01-21 06:00] VITALS: BP 123/74
[2017-01-21] MEDS: SLF 3 ML SYR IV SCH ×3 (06:22→21:43)
[2017-01-21] MEDS: NIFEdipine 30 MG XL TAB PO SCH (08:56)
[2017-01-21] MEDS: DOCUSATE SODIUM 100 MG CAP PO SCH ×2 (08:56→21:39)
[2017-01-21] MEDS: ASPIRIN 81 MG ENTERIC TAB PO SCH (08:57)
[2017-01-21] MEDS: NYSTATIN 500,000 U/5 ML SUSP UDC SSP SCH ×3 (08:57→21:40)
[2017-01-21] MEDS: PANTOPRAZOLE 40MG TAB (PROTONIX) PO SCH (08:57)
[2017-01-21] MEDS: ENOXAPARIN 40 MG/0.4 ML SYRINGE (J1650) SC SCH (08:57)
[2017-01-21] MEDS: CLOPIDOGREL 75 MG TAB PO SCH (08:57)
[2017-01-21] MEDS: MAGNESIUM OXIDE 400 MG TAB (MAG-OX) PO SCH ×2 (09:00→21:40)
--- NOTE | 2017-01-21 13:34 | IPNPDOC ---
PM&R Progress Note Occasional Caregiver Progress Note DATE OF SERVICE: 01/21/17 DATE OF ADMISSION: Jan 19, 2017 at 13:45 INPATIENT REHABILITATION ADMISSION DAY: #3 SUBJECTIVE: The patient is a 56-year-old white male who has been disabled by multiple medical problems. This right-handed gentleman had prior right MCA stroke in April of 2016, atherosclerotic cardiovascular disease, also including hypertension, hyperlipidemia. The patient also with prior bladder cancer and prostate cancer with prostatectomy and nephrostomy performed and prior carotid artery disease with a stent which occluded. The patient has started in physical, occupational and speech therapy. He does have some dysphagia with troubles having sensation in the left mouth with left facial droop, right tongue deviation, left sensory neglect as well as left hemiparesis with returning tone. Patient concerned with headache mainly on top of head and not feeling help from the Tylenol. I will add Tramadol. ALLERGIES: See Below MEDICATIONS: Reviewed, see below. OBJECTIVE: VITAL SIGNS: Please see below. PHYSICAL EXAMINATION: GENERAL: Average height slight middle-age white male who looks older than stated age of 56. Patient still tending to lean to the left with some left neglect. It appears to be in no other distress. HEENT: Left facial droop with right tongue deviation but atraumatic. CARDIOVASCULAR: Regular rate and rhythm with normal S1 and S2. 2/4 bilateral radial pulses. LUNGS: Penn clear to auscultation. ABDOMEN: Benign with normal bowel sounds in all quadrants and nephrostomy bag in place. NEUROLOGICAL: Alert and oriented to person, place, general time and situation. Continued return of tone in Left U&LE with more forearm and leg musculature. Still left neglect and some agnosia problems. SKIN: Grossly intact LABORATORY DATA: Reviewed. Please see below. MICROBIOLOGY: Please see below. IMAGING: No new imaging. DVT prophylaxis ordered?: Lovenox, aspirin, RIGO hose and sequential compressive stockings. ASSESSMENT AND PLAN: 1. Rehabilitation of CVAs with left hemisensory motor deficits: Patient starting evaluations today with physical, occupational and speech second language tutor all achieved. Patient is showing improved left UE control and strength with some hand extrinsic motions. His left neglect/agnosia is better, but still a major limiter of this gentleman. Anticipated Date of Discharge to home with family is 02/04/17. 2. Mild anemia with H&H of 9.8 and 29.4% today on 01/20/17. We will continue to observe. 3. Hypo-magnesemia: Patient received 1 g of magnesium IV last night. Mg++ level is 1.9 today which is normal range.I will go ahead and recheck magnesium Tuesday morning along with a comprehensive metabolic panel. I am starting the patient on Magnesium Oxide 400mg bid for the next few days instead of IV Magnesium. Medicine services to continue to follow. 4. Nutrition: Albumin is reduced to 2.7 so we will see how patient is doing on eating and he may possibly benefit from Ensure. TIME SPENT: Chart Review, examination and documentation require greater than 25 minutes. Allergies Coded Allergies: No Known Allergies (Unverified , 01/19/17) Vital Signs Vital Signs Date Time Temp Pulse Resp B/P (MAP) Pulse Ox O2 Delivery O2 Flow Rate FiO2 01/21/17 08:56 123/74 01/21/17 06:00 98.8 77 18 96 Room Air Laboratory Data Labs 24H Laboratory Tests 2 01/21/17 07:11: Magnesium Level 1.9 Current Medications Current Medications Current Medications Acetaminophen (Tylenol Tab) 650 mg Q6HP PRN PO PAIN OR FEVER Last administered on 01/21/17 12:47; Start 01/19/17 at 11:45; Stop 02/18/17 at 11:44 Aspirin (Ecotrin) 81 mg DAILY PO Last administered on 01/21/17 08:57; Start 01/20/17 at 09:00; Stop 02/19/17 at 08:59 Atorvastatin Calcium (Lipitor) 80 mg QHS PO Last administered on 01/20/17 21: 05; Start 01/19/17 at 21:00; Stop 02/18/17 at 20:59 Bisacodyl (Dulcolax Tab) 5 mg DAILYPRN PRN PO CONSTIPATION; Start 01/19/17 at 11:45; Stop 02/18/17 at 11:44 Clopidogrel Bisulfate (PLAVix) 75 mg DAILY PO Last administered on 01/21/17 08:57; Start 01/20/17 at 09:00; Stop 02/19/17 at 08:59 Docusate Sodium (Colace) 100 mg BID PO Last administered on 01/21/17 08:56; Start 01/19/17 at 21:00; Stop 02/18/17 at 20:59 Enoxaparin Sodium (Lovenox) 40 mg DAILY SC Last administered on 01/21/17 08: 57; Start 01/20/17 at 09:00; Stop 01/27/17 at 23:55 Home Med (Med Rec Complete!) ASDIRECTED XX ; Start 01/19/17 at 15:45; Stop at 15:47; Status DC Magnesium Hydroxide (Milk Of Magnesia) 30 ml DAILYPRN PRN PO CONSTIPATION; Start 01/19/17 at 11:45; Stop 02/18/17 at 11:44 Magnesium Oxide (Mag-Ox) 400 mg BID PO Last administered on 01/21/17 09:00; Start 01/21/17 at 09:00; Stop 01/25/17 at 08:59 Nifedipine (Procardia Xl) 90 mg DAILY PO Last administered on 01/21/17 08:56 ; Start 01/20/17 at 09:00; Stop 02/19/17 at 08:59 Nystatin (Mycostatin) 5 ml TID SSP Last administered on 01/21/17 08:57; Start 01/20/17 at 09:00; Stop 01/26/17 at 23:55 Pantoprazole Sodium (Protonix) 40 mg DAILY PO Last administered on 01/21/17 08:57; Start 01/20/17 at 09:00; Stop 02/19/17 at 08:59 Sodium Chloride (Saline Lock Flush) 2 ml ASDIRECTED PRN IV SEE LABEL COMMENTS; Start 01/20/17 at 15:15; Stop 02/19/17 at 15:14 Sodium Chloride (Saline Lock Flush) 2 ml SLF IV Last administered on 06:22; Start 01/20/17 at 22:00; Stop 02/19/17 at 21:59 Tramadol HCl (Ultram) 50 mg Q4HP PRN PO PAIN (PS 5-10); Start 01/21/17 at 13: 00; Stop 01/28/17 at 12:59 SUJIT DUKE MD Jan 21, 2017 13:34
[2017-01-21 14:07] VITALS: BP 121/72
[2017-01-21] MEDS: traMADol 50 MG TAB PO PRN ×2 (14:45→21:43)
[2017-01-21 20:30] VITALS: BP 132/65
[2017-01-21] MEDS: ATORVASTATIN 20 MG TAB PO SCH (21:39)
[2017-01-22 05:00] VITALS: BP 151/90
[2017-01-22] MEDS: SLF 3 ML SYR IV SCH ×3 (05:14→22:00)
[2017-01-22 06:00] LABS: MEAN CORPUSCULAR HEMOGLOBIN 29.5 pg (27.0-33.0); MEAN CORPUSCULAR HGB CONC 33.3 g/dl (32.0-36.5); MEAN CORPUSCULAR VOLUME 88.5 fl (80.0-96.0); PLATELET COUNT, AUTOMATED 264 10^3/uL (150-450); RED CELL DISTRIBUTION WIDTH 14.1 % (11.5-14.5); WHITE BLOOD COUNT 10.1 10^3/uL (4.0-10.0)
[2017-01-22] MEDS: ASPIRIN 81 MG ENTERIC TAB PO SCH (08:35)
[2017-01-22] MEDS: NYSTATIN 500,000 U/5 ML SUSP UDC SSP SCH ×3 (08:35→20:58)
[2017-01-22] MEDS: NIFEdipine 30 MG XL TAB PO SCH (08:36)
[2017-01-22] MEDS: MAGNESIUM OXIDE 400 MG TAB (MAG-OX) PO SCH ×2 (08:36→20:58)
[2017-01-22] MEDS: CLOPIDOGREL 75 MG TAB PO SCH (08:36)
[2017-01-22] MEDS: PANTOPRAZOLE 40MG TAB (PROTONIX) PO SCH (08:36)
[2017-01-22] MEDS: ENOXAPARIN 40 MG/0.4 ML SYRINGE (J1650) SC SCH (08:36)
[2017-01-22] MEDS: traMADol 50 MG TAB PO PRN ×2 (08:37→20:58)
[2017-01-22] MEDS: DOCUSATE SODIUM 100 MG CAP PO SCH ×2 (08:37→20:58)
[2017-01-22 14:00] VITALS: BP 105/55
[2017-01-22] MEDS: ATORVASTATIN 20 MG TAB PO SCH (20:58)
[2017-01-22 21:00] VITALS: BP 141/72
[2017-01-23 05:25] VITALS: BP 159/98
[2017-01-23] MEDS: SLF 3 ML SYR IV SCH (05:26)
[2017-01-23] MEDS: NYSTATIN 500,000 U/5 ML SUSP UDC SSP SCH ×3 (10:30→20:57)
[2017-01-23] MEDS: CLOPIDOGREL 75 MG TAB PO SCH (10:30)
[2017-01-23] MEDS: MAGNESIUM OXIDE 400 MG TAB (MAG-OX) PO SCH ×2 (10:30→20:57)
[2017-01-23] MEDS: NIFEdipine 30 MG XL TAB PO SCH (10:30)
[2017-01-23] MEDS: ASPIRIN 81 MG ENTERIC TAB PO SCH (10:30)
[2017-01-23] MEDS: PANTOPRAZOLE 40MG TAB (PROTONIX) PO SCH (10:30)
[2017-01-23] MEDS: DOCUSATE SODIUM 100 MG CAP PO SCH ×2 (10:30→20:51)
[2017-01-23] MEDS: ENOXAPARIN 40 MG/0.4 ML SYRINGE (J1650) SC SCH (10:31)
[2017-01-23] MEDS: traMADol 50 MG TAB PO PRN ×2 (10:31→20:58)
[2017-01-23 14:00] VITALS: BP 134/73
[2017-01-23] MEDS: ATORVASTATIN 20 MG TAB PO SCH (20:57)
[2017-01-23 21:00] VITALS: BP 137/85
[2017-01-24 06:20] VITALS: BP 165/94
[2017-01-24 07:48] LABS: ALBUMIN 2.9 GM/DL (3.2-5.2); ALBUMIN/GLOBULIN RATIO 0.63 (1.00-1.93); ALKALINE PHOSPHATASE 94 U/L (45-117); ALT/SGPT 68 U/L (12-78); ANION GAP 9 MEQ/L (8-16); AST/SGOT 44 U/L (7-37); BILIRUBIN,TOTAL 0.3 MG/DL (0.2-1.0); BLOOD UREA NITROGEN 20 MG/DL (7-18); CALCIUM LEVEL 8.9 MG/DL (8.5-10.1); CARBON DIOXIDE LEVEL 26 MEQ/L (21-32); CHLORIDE LEVEL 106 MEQ/L (98-107); GLOMERULAR FILTRATION RATE > 60.0 (>56); GLUCOSE, FASTING 99 MG/DL (70-105); POTASSIUM SERUM 4.1 MEQ/L (3.5-5.1); SODIUM LEVEL 141 MEQ/L (136-145); TOTAL PROTEIN 7.5 GM/DL (6.4-8.2)
[2017-01-24] MEDS: ASPIRIN 81 MG ENTERIC TAB PO SCH (08:11)
[2017-01-24] MEDS: CLOPIDOGREL 75 MG TAB PO SCH (08:11)
[2017-01-24] MEDS: MAGNESIUM OXIDE 400 MG TAB (MAG-OX) PO SCH (08:12)
[2017-01-24] MEDS: NIFEdipine 30 MG XL TAB PO SCH (08:12)
[2017-01-24] MEDS: PANTOPRAZOLE 40MG TAB (PROTONIX) PO SCH (08:13)
[2017-01-24] MEDS: NYSTATIN 500,000 U/5 ML SUSP UDC SSP SCH ×3 (08:13→21:02)
[2017-01-24] MEDS: ENOXAPARIN 40 MG/0.4 ML SYRINGE (J1650) SC SCH (08:14)
[2017-01-24] MEDS: DOCUSATE SODIUM 100 MG CAP PO SCH ×2 (08:15→21:00)
--- NOTE | 2017-01-24 13:03 | IPNPDOC ---
Date Seen The patient was seen on 01/24/17. Progress Note HPI: This is a 56-year-old male with a prior history of pulmonary embolus, deep vein thrombosis (DVT), prostate cancer with prostatectomy, nephrectomy, status post urostomy bag, was on chronic aspirin at home and presented to [facility] due to acute onset of left-sided weakness on 01/15/2017 at 1600 hours with gaze deviation, dysarthria that started at 1600 hours and noted by the . The patient was air lifted via [facility] air ambulance to [facility] with presenting blood pressure 160/100, glucose 92. The patient had previously had a right MCA frontal branch territorial infarct in April 2016 with multiple watershed infarcts and had left against medical advice from the stroke service at [facility], taken himself off Xarelto despite recommendations for life long anticoagulation. The patient was found to have occlusion of the right internal carotid artery from its origin throughout his cervical course, as well as occlusion at the right M1 MCA from its origin along the majority of its course. The patient did undergo right ICA stenting with complication of right petrous ICA dissection. The pt was subsequently transferred to the care of AMARA Byrd 01/19/17. Denies any fevers, chills, weakness, fatigue, Headache, Chest Pain, Shortness of breath, cough, palpitations, abdominal pain, N/V/D or changes in bowel or bladder habits. PAST MEDICAL HISTORY: 1. PE. 2. DVT 3. History of prostate cancer, status post prostatectomy. 4. Nephrectomy, status post urostomy bag. 5. Right MCA frontal branch CVA in April 2016, left against medical advice. 6. Echocardiogram saline bubble study on 01/17/2017 showed negative saline bubble study, ejection fraction of 55 to 60%. Trace mild mitral regurgitation. Trace pulmonic regurgitation. Mild tricuspid regurgitation. 7. MRI [facility] showed right MCA infarct and blunted right cerebellar infarct with right basal ganglia hemorrhage PAST SURGICAL HISTORY: 1. Nephrectomy on the right, status post urostomy in January 2017. The patient underwent ICA stenting complicated with a right petrous ICA dissection and right basal ganglia hemorrhage. PE: GEN: 56yoM, appears older than stated age. Flat affect, does not respond to questions at times. HEENT: Normocephalic, atraumatic. Sclera are nonicteric. Conjunctiva without injection. Nose midline. No facial asymmetry. Moist mucous membranes. Pharynx pink and moist. Neck supple, trachea midline. No lymphadenopathy or thyromegaly appreciated. CHEST: Regular rate and rhythm, +S1, +S2 LUNGS: Clear to auscultation bilaterally. No wheezes, rales, or rhonchi. Breathing appears symmetric and easy. ABD: Round, soft, non-tender, non-distended. +Bowel sounds throughout. No rebound or guarding. No costovertebral angle tenderness. EXT: No lower extremity edema appreciated. SKIN: Rosalie, dry, warm. No rashes. NEURO: Alert and oriented x 3. LUE/LLE weakness. A&P: This is a 56-year-old male with a prior history of pulmonary embolus, deep vein thrombosis (DVT), prostate cancer with prostatectomy, nephrectomy, status post urostomy bag, was on chronic aspirin at home and presented to [facility] due to acute onset of left-sided weakness on 10/2016 at 1600 hours with gaze deviation, dysarthria that started at 1600 hours and noted by the . The patient was air lifted via [facility] air ambulance to [facility] with presenting blood pressure 160/100 , glucose 92. The patient had previously had a right MCA frontal branch territorial infarct in April 2016 with multiple watershed infarcts and had left against medical advice from the stroke service at [facility], taken himself off Xarelto despite recommendations for life long anticoagulation. The patient was found to have occlusion of the right internal carotid artery from its origin throughout his cervical course, as well as occlusion at the right M1 MCA from its origin along the majority of its course. The patient did undergo right ICA stenting with complication of right petrous ICA dissection. 1. Acute ischemic stroke with right basal ganglia hemorrhage Chronic MCA encephalomalacia. Chronic headaches. Right ICA MCA occlusion status post VERONICA with ICA stenting, stenosis of ICA stents. Etiology of the stroke was a large thrombus due to hypercoagulable state. Status post TPA on 01/15/2017. Status post MRE on 01/15/2017. Ultrasound Doppler on 01/16/2017 shows 50 to 69% occlusion of the stent. The patient was given labetalol/hydralazine for blood pressure control Pt placed on aspirin and Plavix daily. DVT prophylaxis. Lovenox as per ARU attending. PT/OT/ST as per ARU, Dr Oconnor. Pain control and Bowel care as per AMARA Byrd. 2. HTN. Nifedipine. 3. History of prostate cancer with prostatectomy, status post chemotherapy and nephrectomy with subsequent urostomy. The patient's creatinine is stable. Avoid nephrotoxins and renally dose all medications. 4. Hyperlipidemia. Continue high dose statin. 5. GERD. PPI. VS, I&O, 24H, Fishbone Vital Signs/I&O Vital Signs Date Time Temp Pulse Resp B/P (MAP) Pulse Ox O2 Delivery O2 Flow Rate FiO2 01/24/17 06:20 98.0 75 16 165/94 (117) 95 Room Air I&O- Last 24 Hours up to 6 AM 01/25/17 06:00 Intake Total 120 ml Output Total 500 ml Balance -380 ml Laboratory Data 24H LABS Laboratory Tests 2 01/24/17 07:02: Anion Gap 9, Glomerular Filtration Rate > 60.0, Blood Urea Nitrogen 20H, Creatinine 1.10, Sodium Level 141, Potassium Level 4.1, Chloride Level 106, Carbon Dioxide Level 26, Calcium Level 8.9, Aspartate Amino Transf (AST/SGOT) 44H, Alanine Aminotransferase (ALT/SGPT) 68, Alkaline Phosphatase 94, Total Bilirubin 0.3, Total Protein 7.5, Albumin 2.9L, Magnesium Level 2.0, Albumin/ Globulin Ratio 0.63L CBC/BMP Laboratory Tests 01/24/17 07:02 Calcium Level 8.9, Aspartate Amino Transf (AST/SGOT) 44 H, Alanine Aminotransferase (ALT/SGPT) 68, Alkaline Phosphatase 94, Total Bilirubin 0.3, Total Protein 7.5, Albumin 2.9 L Dahlia Garcia Jan 24, 2017 13:03
[2017-01-24 14:22] VITALS: BP 128/66
--- NOTE | 2017-01-24 19:42 | IPNPDOC ---
PM&R Progress Note Airplane Mechanic Apprentice Progress Note DATE OF SERVICE: 01/24/17 DATE OF ADMISSION: Jan 19, 2017 at 13:45 INPATIENT REHABILITATION ADMISSION DAY: #6 SUBJECTIVE: The patient is a 56-year-old white male who has been disabled by multiple medical problems. This right-handed gentleman had prior right MCA stroke in April of 2016, atherosclerotic cardiovascular disease, also including hypertension, hyperlipidemia. The patient also with prior bladder cancer and prostate cancer with prostatectomy and nephrostomy performed and prior carotid artery disease with a stent which occluded. The patient has started in physical, occupational and speech therapy. He does have some dysphagia with troubles having sensation in the left mouth with left facial droop, right tongue deviation, left sensory neglect as well as left hemiparesis with returning tone. Patient starting to decline some therapies. I have reviewed with him his situation as not yet being able to go home safely with his and needing to become more Left body aware and safe in mobility and ADL's, otherwise he will need a safe placement. Patient agrees to participate in the ARU 3 hrs/day program. ALLERGIES: See Below MEDICATIONS: Reviewed, see below. OBJECTIVE: VITAL SIGNS: Please see below. PHYSICAL EXAMINATION: GENERAL: Average height slight middle-age white male who looks older than stated age of 56. Patient still tending to lean to the left with some left neglect. It appears to be in no other distress. HEENT: Left facial droop with right tongue deviation but atraumatic. CARDIOVASCULAR: Regular rate and rhythm with normal S1 and S2. 2/4 bilateral radial pulses. LUNGS: Penn clear to auscultation. ABDOMEN: Benign with normal bowel sounds in all quadrants and nephrostomy bag in place. NEUROLOGICAL: Alert and oriented to person, place, general time and situation. Continued return of tone in Left U&LE with more forearm and leg musculature. Still left neglect and some agnosia problems. SKIN: Grossly intact LABORATORY DATA: Reviewed. Please see below. MICROBIOLOGY: Please see below. IMAGING: No new imaging. DVT prophylaxis ordered?: Lovenox, aspirin, RIGO hose and sequential compressive stockings. ASSESSMENT AND PLAN: 1. Rehabilitation of CVAs with left hemisensory motor deficits: Patient starting evaluations today with physical, occupational and speech manager language all achieved. Patient is showing improved left UE control and strength with some hand extrinsic motions. His left neglect/agnosia is better, but still a major limiter of this gentleman. REHAB. TEAM ROUNDS: Patient's complaints of fatigue and not wanting to do the 3 hours as well as not seeing his deficits and need to participate in the program were discussed in Team and addressed with him. He may need some mood and energy assistance. I will look at Ritalin trial. He needs to increase oral fluids as BUN 20 today. Anticipated Date of Discharge to home with family is 02/04/17. 2. Mild anemia with H&H of 10.0 and 30.0% today on 01/24/17. We will continue to observe. 3. Hypo-magnesemia: Patient received 1 g of magnesium IV last night. Mg++ level is 2.0 today which is normal range. I am continuing the patient on Magnesium Oxide 400mg Daily. Medicine services to continue to follow. 4. Nutrition: Albumin is reduced to 2.9 so we will see how patient is doing on eating and he may possibly benefit from Ensure. TIME SPENT: Chart Review, examination and documentation require greater than 25 minutes. Allergies Coded Allergies: No Known Allergies (Unverified , 01/19/17) Vital Signs Vital Signs Date Time Temp Pulse Resp B/P (MAP) Pulse Ox O2 Delivery O2 Flow Rate FiO2 01/24/17 14:22 98.7 86 18 128/66 (86) 95 Room Air Laboratory Data CBC/BMP Laboratory Tests 01/24/17 07:02 Calcium Level 8.9, Aspartate Amino Transf (AST/SGOT) 44 H, Alanine Aminotransferase (ALT/SGPT) 68, Alkaline Phosphatase 94, Total Bilirubin 0.3, Total Protein 7.5, Albumin 2.9 L Labs 24H Laboratory Tests 2 01/24/17 07:02: Anion Gap 9, Glomerular Filtration Rate > 60.0, Blood Urea Nitrogen 20H, Creatinine 1.10, Sodium Level 141, Potassium Level 4.1, Chloride Level 106, Carbon Dioxide Level 26, Calcium Level 8.9, Aspartate Amino Transf (AST/SGOT) 44H, Alanine Aminotransferase (ALT/SGPT) 68, Alkaline Phosphatase 94, Total Bilirubin 0.3, Total Protein 7.5, Albumin 2.9L, Magnesium Level 2.0, Albumin/ Globulin Ratio 0.63L Current Medications Current Medications Current Medications Acetaminophen (Tylenol Tab) 650 mg Q6HP PRN PO PAIN OR FEVER Last administered on 01/21/17 12:47; Start 01/19/17 at 11:45; Stop 02/18/17 at 11:44 Aspirin (Ecotrin) 81 mg DAILY PO Last administered on 01/24/17 08:11; Start 01/20/17 at 09:00; Stop 02/19/17 at 08:59 Atorvastatin Calcium (Lipitor) 80 mg QHS PO Last administered on 01/23/17 20: 57; Start 01/19/17 at 21:00; Stop 02/18/17 at 20:59 Bisacodyl (Dulcolax Tab) 5 mg DAILYPRN PRN PO CONSTIPATION; Start 01/19/17 at 11:45; Stop 02/18/17 at 11:44 Clopidogrel Bisulfate (PLAVix) 75 mg DAILY PO Last administered on 01/24/17 08:11; Start 01/20/17 at 09:00; Stop 02/19/17 at 08:59 Docusate Sodium (Colace) 100 mg BID PO Last administered on 01/23/17 10:30; Start 01/19/17 at 21:00; Stop 02/18/17 at 20:59 Enoxaparin Sodium (Lovenox) 40 mg DAILY SC Last administered on 01/24/17 08: 14; Start 01/20/17 at 09:00; Stop 01/27/17 at 23:55 Home Med (Med Rec Complete!) ASDIRECTED XX ; Start 01/19/17 at 15:45; Stop at 15:47; Status DC Magnesium Hydroxide (Milk Of Magnesia) 30 ml DAILYPRN PRN PO CONSTIPATION; Start 01/19/17 at 11:45; Stop 02/18/17 at 11:44 Magnesium Oxide (Mag-Ox) 400 mg BID PO Last administered on 01/24/17 08:12; Start 01/21/17 at 09:00; Stop 01/25/17 at 08:59 Nifedipine (Procardia Xl) 90 mg DAILY PO Last administered on 01/24/17 08:12 ; Start 01/20/17 at 09:00; Stop 02/19/17 at 08:59 Nystatin (Mycostatin) 5 ml TID SSP Last administered on 01/24/17 15:29; Start 01/20/17 at 09:00; Stop 01/26/17 at 23:55 Pantoprazole Sodium (Protonix) 40 mg DAILY PO Last administered on 01/24/17 08:13; Start 01/20/17 at 09:00; Stop 02/19/17 at 08:59 Sodium Chloride (Saline Lock Flush) 2 ml ASDIRECTED PRN IV SEE LABEL COMMENTS; Start 01/20/17 at 15:15; Stop 01/23/17 at 10:32; Status DC Sodium Chloride (Saline Lock Flush) 2 ml SLF IV Last administered on 14:00; Start 01/20/17 at 22:00; Stop 01/23/17 at 10:32; Status DC Tramadol HCl (Ultram) 50 mg Q4HP PRN PO PAIN (PS 5-10) Last administered on 20:58; Start 01/21/17 at 13:00; Stop 01/28/17 at 12:59 SUJIT DUKE MD Jan 24, 2017 19:42
[2017-01-24 20:00] VITALS: BP 116/69
[2017-01-24] MEDS: ATORVASTATIN 20 MG TAB PO SCH (21:02)
[2017-01-24] MEDS: traMADol 50 MG TAB PO PRN (21:03)
[2017-01-25 06:00] VITALS: BP 133/77
[2017-01-25] MEDS: METHYLPHENIDATE 5 MG TAB PO SCH ×2 (06:45→12:09)
[2017-01-25 07:24] LABS: MEAN CORPUSCULAR HEMOGLOBIN 29.6 pg (27.0-33.0); MEAN CORPUSCULAR HGB CONC 33.3 g/dl (32.0-36.5); MEAN CORPUSCULAR VOLUME 88.9 fl (80.0-96.0); PLATELET COUNT, AUTOMATED 317 10^3/uL (150-450); RED CELL DISTRIBUTION WIDTH 14.2 % (11.5-14.5); WHITE BLOOD COUNT 10.2 10^3/uL (4.0-10.0)
[2017-01-25] MEDS: NYSTATIN 500,000 U/5 ML SUSP UDC SSP SCH ×3 (08:51→20:50)
[2017-01-25] MEDS: MAGNESIUM OXIDE 400 MG TAB (MAG-OX) PO SCH (08:51)
[2017-01-25] MEDS: DOCUSATE SODIUM 100 MG CAP PO SCH ×3 (08:52→20:51)
[2017-01-25] MEDS: NIFEdipine 30 MG XL TAB PO SCH (08:52)
[2017-01-25] MEDS: ENOXAPARIN 40 MG/0.4 ML SYRINGE (J1650) SC SCH (08:52)
[2017-01-25] MEDS: PANTOPRAZOLE 40MG TAB (PROTONIX) PO SCH (08:52)
[2017-01-25] MEDS: ASPIRIN 81 MG ENTERIC TAB PO SCH (08:52)
[2017-01-25] MEDS: CLOPIDOGREL 75 MG TAB PO SCH (08:52)
[2017-01-25 14:00] VITALS: BP 123/70
--- NOTE | 2017-01-25 17:50 | IPNPDOC ---
PM&R Progress Note Cut Off Tender Glass Progress Note DATE OF SERVICE: 01/25/17 DATE OF ADMISSION: Jan 19, 2017 at 13:45 INPATIENT REHABILITATION ADMISSION DAY: #7 SUBJECTIVE: The patient is a 56-year-old white male who has been disabled by multiple medical problems. This right-handed gentleman had prior right MCA stroke in April of 2016, atherosclerotic cardiovascular disease, also including hypertension, hyperlipidemia. The patient also with prior bladder cancer and prostate cancer with prostatectomy and nephrostomy performed and prior carotid artery disease with a stent which occluded. The patient has started in physical, occupational and speech therapy. He does have some dysphagia with troubles having sensation in the left mouth with left facial droop, right tongue deviation, left sensory neglect as well as left hemiparesis with returning tone. Patient starting to decline some therapies. I have reviewed with him his situation as not yet being able to go home safely with his and needing to become more Left body aware and safe in mobility and ADL's, otherwise he will need a safe placement. Patient agrees to participate in the ARU 3 hrs/day program. ALLERGIES: See Below MEDICATIONS: Reviewed, see below. OBJECTIVE: VITAL SIGNS: Please see below. PHYSICAL EXAMINATION: GENERAL: Average height slight middle-age white male who looks older than stated age of 56. Patient still tending to lean to the left with some left neglect. It appears to be in no other distress. HEENT: Left facial droop with right tongue deviation but atraumatic. CARDIOVASCULAR: Regular rate and rhythm with normal S1 and S2. 2/4 bilateral radial pulses. LUNGS: Penn clear to auscultation. ABDOMEN: Benign with normal bowel sounds in all quadrants and nephrostomy bag in place. NEUROLOGICAL: Alert and oriented to person, place, general time and situation. Continued return of tone in Left U&LE with more forearm and leg musculature. Still left neglect and some agnosia problems, but sitting up in bed straight on not on left side, and more alert. SKIN: Grossly intact LABORATORY DATA: Reviewed. Please see below. MICROBIOLOGY: Please see below. IMAGING: No new imaging. DVT prophylaxis ordered?: Lovenox, aspirin, RIGO hose and sequential compressive stockings. ASSESSMENT AND PLAN: 1. Rehabilitation of CVAs with left hemisensory motor deficits: Patient starting evaluations today with physical, occupational and speech world language teacher all achieved. Patient is showing improved left UE control and strength with some hand extrinsic motions. His left neglect/agnosia is better, but still a major limiter of this gentleman. I have started a Ritalin trial with some improvement when I saw him this morning. He needs to increase oral fluids as BUN 20 today. Anticipated Date of Discharge to home with family is 02/04/17. 2. Mild anemia with H&H of 10.4 and 31.4% today on 01/25/17. We will continue to observe. 3. Hypo-magnesemia: Patient received 1 g of magnesium IV last night. Mg++ level is 2.0 which is normal range. I am continuing the patient on Magnesium Oxide 400mg Daily. Medicine services to continue to follow. 4. Nutrition: Albumin is reduced to 2.9 so we will see how patient is doing on eating and he may possibly benefit from Ensure. TIME SPENT: Chart Review, examination and documentation require greater than 25 minutes. Allergies Coded Allergies: No Known Allergies (Unverified , 01/19/17) Vital Signs Vital Signs Date Time Temp Pulse Resp B/P (MAP) Pulse Ox O2 Delivery O2 Flow Rate FiO2 01/25/17 14:00 98.8 82 18 123/70 (87) 97 Room Air Laboratory Data CBC/BMP Laboratory Tests 01/25/17 06:54 Red Blood Count 3.51 L, Mean Corpuscular Volume 88.9, Mean Corpuscular Hemoglobin 29.6, Mean Corpuscular Hemoglobin Concent 33.3, Red Cell Distribution Width 14.2 Labs 24H Laboratory Tests 2 01/25/17 06:54: Nucleated Red Blood Cells % (auto) 0.0 Current Medications Current Medications Current Medications Acetaminophen (Tylenol Tab) 650 mg Q6HP PRN PO PAIN OR FEVER Last administered on 01/21/17 12:47; Start 01/19/17 at 11:45; Stop 02/18/17 at 11:44 Aspirin (Ecotrin) 81 mg DAILY PO Last administered on 01/25/17 08:52; Start 01/20/17 at 09:00; Stop 02/19/17 at 08:59 Atorvastatin Calcium (Lipitor) 80 mg QHS PO Last administered on 01/24/17 21: 02; Start 01/19/17 at 21:00; Stop 02/18/17 at 20:59 Bisacodyl (Dulcolax Tab) 5 mg DAILYPRN PRN PO CONSTIPATION; Start 01/19/17 at 11:45; Stop 02/18/17 at 11:44 Clopidogrel Bisulfate (PLAVix) 75 mg DAILY PO Last administered on 01/25/17 08:52; Start 01/20/17 at 09:00; Stop 02/19/17 at 08:59 Docusate Sodium (Colace) 100 mg BID PO Last administered on 01/23/17 10:30; Start 01/19/17 at 21:00; Stop 02/18/17 at 20:59 Enoxaparin Sodium (Lovenox) 40 mg DAILY SC Last administered on 01/25/17 08: 52; Start 01/20/17 at 09:00; Stop 02/01/17 at 23:55 Home Med (Med Rec Complete!) ASDIRECTED XX ; Start 01/19/17 at 15:45; Stop at 15:47; Status DC Magnesium Hydroxide (Milk Of Magnesia) 30 ml DAILYPRN PRN PO CONSTIPATION; Start 01/19/17 at 11:45; Stop 02/18/17 at 11:44 Magnesium Oxide (Mag-Ox) 400 mg BID PO Last administered on 01/24/17 08:12; Start 01/21/17 at 09:00; Stop 01/24/17 at 19:40; Status DC Magnesium Oxide (Mag-Ox) 400 mg DAILY PO Last administered on 01/25/17 08:51 ; Start 01/25/17 at 09:00; Stop 02/14/17 at 08:59 Methylphenidate HCl (Ritalin) 2.5 mg BID@0600,1200 PO Last administered on 12:09; Start 01/25/17 at 06:00; Stop 02/01/17 at 05:59 Nifedipine (Procardia Xl) 90 mg DAILY PO Last administered on 01/25/17 08:52 ; Start 01/20/17 at 09:00; Stop 02/19/17 at 08:59 Nystatin (Mycostatin) 5 ml TID SSP Last administered on 01/25/17 16:00; Start 01/20/17 at 09:00; Stop 01/26/17 at 23:55 Pantoprazole Sodium (Protonix) 40 mg DAILY PO Last administered on 01/25/17 08:52; Start 01/20/17 at 09:00; Stop 02/19/17 at 08:59 Sodium Chloride (Saline Lock Flush) 2 ml ASDIRECTED PRN IV SEE LABEL COMMENTS; Start 01/20/17 at 15:15; Stop 01/23/17 at 10:32; Status DC Sodium Chloride (Saline Lock Flush) 2 ml SLF IV Last administered on 14:00; Start 01/20/17 at 22:00; Stop 01/23/17 at 10:32; Status DC Tramadol HCl (Ultram) 50 mg Q4HP PRN PO PAIN (PS 5-10) Last administered on 21:03; Start 01/21/17 at 13:00; Stop 01/28/17 at 12:59 SUJIT DUKE MD Jan 25, 2017 17:50
[2017-01-25 20:00] VITALS: BP 143/79
[2017-01-25] MEDS: traMADol 50 MG TAB PO PRN (20:50)
[2017-01-25] MEDS: ATORVASTATIN 20 MG TAB PO SCH (20:51)
[2017-01-26 06:00] VITALS: BP 131/86
[2017-01-26] MEDS: METHYLPHENIDATE 5 MG TAB PO SCH ×2 (06:03→12:31)
[2017-01-26] MEDS: DOCUSATE SODIUM 100 MG CAP PO SCH (08:14)
[2017-01-26] MEDS: PANTOPRAZOLE 40MG TAB (PROTONIX) PO SCH (08:15)
[2017-01-26] MEDS: ASPIRIN 81 MG ENTERIC TAB PO SCH (08:15)
[2017-01-26] MEDS: NYSTATIN 500,000 U/5 ML SUSP UDC SSP SCH ×3 (08:15→20:25)
[2017-01-26] MEDS: MAGNESIUM OXIDE 400 MG TAB (MAG-OX) PO SCH (08:15)
[2017-01-26] MEDS: CLOPIDOGREL 75 MG TAB PO SCH (08:15)
[2017-01-26] MEDS: NIFEdipine 30 MG XL TAB PO SCH (08:15)
[2017-01-26] MEDS: ENOXAPARIN 40 MG/0.4 ML SYRINGE (J1650) SC SCH (08:16)
[2017-01-26 14:00] VITALS: BP 121/68
[2017-01-26 14:25] VITALS: BP 121/71
--- NOTE | 2017-01-26 14:40 | IPNPDOC ---
PM&R Progress Note Sensor Technician Progress Note DATE OF SERVICE: 01/26/17 DATE OF ADMISSION: Jan 19, 2017 at 13:45 INPATIENT REHABILITATION ADMISSION DAY: #8 SUBJECTIVE: The patient is a 56-year-old white male who has been disabled by multiple medical problems. This right-handed gentleman had prior right MCA stroke in April of 2016, atherosclerotic cardiovascular disease, also including hypertension, hyperlipidemia. The patient also with prior bladder cancer and prostate cancer with prostatectomy and nephrostomy performed and prior carotid artery disease with a stent which occluded. The patient has started in physical, occupational and speech therapy. He does have some dysphagia with troubles having sensation in the left mouth with left facial droop, right tongue deviation, left sensory neglect as well as left hemiparesis with returning tone. Patient starting to decline some therapies. I have reviewed with him his situation as not yet being able to go home safely with his and needing to become more Left body aware and safe in mobility and ADL's, otherwise he will need a safe placement. Patient agrees to participate in the ARU 3 hrs/day program. ALLERGIES: See Below MEDICATIONS: Reviewed, see below. OBJECTIVE: VITAL SIGNS: Please see below. PHYSICAL EXAMINATION: GENERAL: Average height slight middle-age white male who looks older than stated age of 56. Patient still tending to lean to the left with some left neglect. It appears to be in no other distress. HEENT: Left facial droop with right tongue deviation but atraumatic. Thrush still present with less erythema and rutting on tongue. CARDIOVASCULAR: Regular rate and rhythm with normal S1 and S2. 2/4 bilateral radial pulses. LUNGS: [place] clear to auscultation. ABDOMEN: Benign with normal bowel sounds in all quadrants and nephrostomy bag in place. NEUROLOGICAL: Alert and oriented to person, place, general time and situation. Continued return of tone in Left U&LE with more forearm and leg musculature. Still left neglect and some agnosia problems, but sitting up in bed straight on not on left side, and more alert. SKIN: Grossly intact. LABORATORY DATA: Reviewed. Please see below. MICROBIOLOGY: Please see below. IMAGING: No new imaging. DVT prophylaxis ordered?: Lovenox, aspirin, RIGO hose and sequential compressive stockings. ASSESSMENT AND PLAN: 1. Rehabilitation of CVAs with left hemisensory motor deficits: Patient starting evaluations today with physical, occupational and speech plant pathology teacher all achieved. Patient is showing improved left UE control and strength with some hand extrinsic motions. His left neglect/agnosia is better, but still a major limiter of this gentleman. I have started a Ritalin trial with some improvement when I saw him this morning. He is consistently up more. However, he needs to sit up in a chair for meals. He needs to increase oral fluids as BUN 20 today. Anticipated Date of Discharge to home with family is 02/04/17. 2. Mild anemia with H&H of 10.4 and 31.4% on 01/25/17. We will continue to observe. 3. Hypo-magnesemia: Patient received 1 g of magnesium IV last night. Mg++ level is 2.0 which is normal range. I am continuing the patient on Magnesium Oxide 400mg Daily. Medicine services to continue to follow. 4. Nutrition: Albumin is reduced to 2.9 so we will see how patient is doing on eating and he may possibly benefit from Ensure. 5. Thrush: Still present, but much better. I will continue Nystatin for another week. TIME SPENT: Chart Review, examination and documentation require greater than 25 minutes. Allergies Coded Allergies: No Known Allergies (Unverified , 01/19/17) Vital Signs Vital Signs Date Time Temp Pulse Resp B/P (MAP) Pulse Ox O2 Delivery O2 Flow Rate FiO2 01/26/17 08:15 131/86 01/26/17 06:00 99.0 89 17 97 Room Air Current Medications Current Medications Current Medications Acetaminophen (Tylenol Tab) 650 mg Q6HP PRN PO PAIN OR FEVER Last administered on 01/21/17 12:47; Start 01/19/17 at 11:45; Stop 02/18/17 at 11:44 Aspirin (Ecotrin) 81 mg DAILY PO Last administered on 01/26/17 08:15; Start 01/20/17 at 09:00; Stop 02/19/17 at 08:59 Atorvastatin Calcium (Lipitor) 80 mg QHS PO Last administered on 01/25/17 20: 51; Start 01/19/17 at 21:00; Stop 02/18/17 at 20:59 Bisacodyl (Dulcolax Tab) 5 mg DAILYPRN PRN PO CONSTIPATION; Start 01/19/17 at 11:45; Stop 02/18/17 at 11:44 Clopidogrel Bisulfate (PLAVix) 75 mg DAILY PO Last administered on 01/26/17 08:15; Start 01/20/17 at 09:00; Stop 02/19/17 at 08:59 Docusate Sodium (Colace) 100 mg BID PO Last administered on 01/23/17 10:30; Start 01/19/17 at 21:00; Stop 01/26/17 at 10:33; Status DC Enoxaparin Sodium (Lovenox) 40 mg DAILY SC Last administered on 01/26/17 08: 16; Start 01/20/17 at 09:00; Stop 02/01/17 at 23:55 Home Med (Med Rec Complete!) ASDIRECTED XX ; Start 01/19/17 at 15:45; Stop at 15:47; Status DC Magnesium Hydroxide (Milk Of Magnesia) 30 ml DAILYPRN PRN PO CONSTIPATION; Start 01/19/17 at 11:45; Stop 02/18/17 at 11:44 Magnesium Oxide (Mag-Ox) 400 mg BID PO Last administered on 01/24/17 08:12; Start 01/21/17 at 09:00; Stop 01/24/17 at 19:40; Status DC Magnesium Oxide (Mag-Ox) 400 mg DAILY PO Last administered on 01/26/17 08:15 ; Start 01/25/17 at 09:00; Stop 02/14/17 at 08:59 Methylphenidate HCl (Ritalin) 2.5 mg BID@0600,1200 PO Last administered on 12:31; Start 01/25/17 at 06:00; Stop 02/01/17 at 05:59 Nifedipine (Procardia Xl) 90 mg DAILY PO Last administered on 01/26/17 08:15 ; Start 01/20/17 at 09:00; Stop 02/19/17 at 08:59 Nystatin (Mycostatin) 5 ml TID SSP Last administered on 01/26/17 08:15; Start 01/20/17 at 09:00; Stop 01/26/17 at 23:55 Pantoprazole Sodium (Protonix) 40 mg DAILY PO Last administered on 01/26/17 08:15; Start 01/20/17 at 09:00; Stop 02/19/17 at 08:59 Sodium Chloride (Saline Lock Flush) 2 ml ASDIRECTED PRN IV SEE LABEL COMMENTS; Start 01/20/17 at 15:15; Stop 01/23/17 at 10:32; Status DC Sodium Chloride (Saline Lock Flush) 2 ml SLF IV Last administered on 14:00; Start 01/20/17 at 22:00; Stop 01/23/17 at 10:32; Status DC Tramadol HCl (Ultram) 50 mg Q4HP PRN PO PAIN (PS 5-10) Last administered on 20:50; Start 01/21/17 at 13:00; Stop 02/02/17 at 23:55 SUJIT DUKE MD Jan 26, 2017 14:40
[2017-01-26 20:00] VITALS: BP 116/62
[2017-01-26] MEDS: ATORVASTATIN 20 MG TAB PO SCH (20:25)
[2017-01-27] MEDS: METHYLPHENIDATE 5 MG TAB PO SCH ×2 (05:55→12:42)
[2017-01-27 06:00] VITALS: BP 136/81
[2017-01-27 08:06] LABS: ANION GAP 7 MEQ/L (8-16); BLOOD UREA NITROGEN 18 MG/DL (7-18); CARBON DIOXIDE LEVEL 30 MEQ/L (21-32); CHLORIDE LEVEL 100 MEQ/L (98-107); CREATININE FOR GFR 1.16 MG/DL (0.70-1.30); GLOMERULAR FILTRATION RATE > 60.0 (>56); GLUCOSE, FASTING 98 MG/DL (70-105); MAGNESIUM LEVEL 1.9 MG/DL (1.8-2.4); POTASSIUM SERUM 3.8 MEQ/L (3.5-5.1); SODIUM LEVEL 137 MEQ/L (136-145)
[2017-01-27] MEDS: NYSTATIN 500,000 U/5 ML SUSP UDC SSP SCH ×3 (08:34→20:36)
[2017-01-27] MEDS: ENOXAPARIN 40 MG/0.4 ML SYRINGE (J1650) SC SCH (08:34)
[2017-01-27] MEDS: ASPIRIN 81 MG ENTERIC TAB PO SCH (08:35)
[2017-01-27] MEDS: PANTOPRAZOLE 40MG TAB (PROTONIX) PO SCH (08:35)
[2017-01-27] MEDS: CLOPIDOGREL 75 MG TAB PO SCH (08:35)
[2017-01-27] MEDS: NIFEdipine 30 MG XL TAB PO SCH (08:35)
[2017-01-27] MEDS: MAGNESIUM OXIDE 400 MG TAB (MAG-OX) PO SCH (08:35)
[2017-01-27] MEDS: traMADol 50 MG TAB PO PRN (08:35)
--- NOTE | 2017-01-27 11:16 | IPNPDOC ---
PM&R Progress Note Saddle Stitcher Progress Note DATE OF SERVICE: 01/27/17 DATE OF ADMISSION: Jan 19, 2017 at 13:45 INPATIENT REHABILITATION ADMISSION DAY: #9 SUBJECTIVE: The patient is a 56-year-old white male who has been disabled by multiple medical problems. This right-handed gentleman had prior right MCA stroke in April of 2016, atherosclerotic cardiovascular disease, also including hypertension, hyperlipidemia. The patient also with prior bladder cancer and prostate cancer with prostatectomy and nephrostomy performed and prior carotid artery disease with a stent which occluded. The patient has started in physical, occupational and speech therapy. He does have some dysphagia with troubles having sensation in the left mouth with left facial droop, right tongue deviation, left sensory neglect as well as left hemiparesis with returning tone. Patient starting to decline some therapies. I have reviewed with him his situation as not yet being able to go home safely with his and needing to become more Left body aware and safe in mobility and ADL's, otherwise he will need a safe placement. Patient agrees to participate in the ARU 3 hrs/day program. Patient notes trouble with sleep at night and requests a sleeping medication. This afternoon patient demanding to be discharged AGAINST MEDICAL ADVICE at home so he can be home for [place]. He is expressing his understanding that he did with the therapist asked he would be discharged in time. He is not understanding they had to reach discharge goals rather than achieve some daily intermediate goals. Patient appears to be stressed by this and has shown more confusion today such that he following therapy he entered 2 rooms before finally being directed by nursing to his room. He is unable to articulate his deficits and how he will overcome them other than expressing that his will take care of him. ALLERGIES: See Below MEDICATIONS: Reviewed, see below. OBJECTIVE: VITAL SIGNS: Please see below. PHYSICAL EXAMINATION: GENERAL: Average height slight middle-age white male who looks older than stated age of 56. Patient still tending to lean to the left with some left neglect. It appears to be in no other distress. HEENT: Left facial droop with right tongue deviation but atraumatic. Thrush still present with less erythema and rutting on tongue. CARDIOVASCULAR: Regular rate and rhythm with normal S1 and S2. 2/4 bilateral radial pulses. LUNGS: [place] clear to auscultation. ABDOMEN: Benign with normal bowel sounds in all quadrants and nephrostomy bag in place. NEUROLOGICAL: Alert and oriented to person, place, general time and situation. Continued return of tone in Left U&LE with more forearm and leg musculature. Still left neglect and some agnosia problems, but sitting up in bed straight on not on left side, and continues to be more alert. SKIN: Grossly intact. LABORATORY DATA: Reviewed. Please see below. MICROBIOLOGY: Please see below. IMAGING: No new imaging. DVT prophylaxis ordered?: Lovenox, aspirin, RIGO hose and sequential compressive stockings. ASSESSMENT AND PLAN: 1. Rehabilitation of CVAs with left hemisensory motor deficits: Patient starting evaluations today with physical, occupational and speech plant pathologist all achieved. Patient is showing improved left UE control and strength with some hand extrinsic motions. His left neglect/agnosia is better, but still a major limiter of this gentleman. I have started a Ritalin trial with some improvement when I saw him this morning. He is consistently up more. However, he needs to sit up in a chair for meals. I will add tramadol 50 mg po QHS to facilitate sleep. This should also enhance the Ritalin effect. REHAB. TEAM ROUNDS: Patient is not ready for discharge at this time but has made notable progress. He still requires moderate assistance and number of activities. He requires more support than his is currently able to provide. The team still feels patient has Anticipated Date of Discharge to home with family is 02/04/17. At this time, I feel patient is not able to express understanding of his situation due to being emotionally overwhelmed by his desire to return home by [place]. Therefore I do not see his request at this time as competent to be discharged AMA. The child care aide and I will meet with patient's . Please see attached therapy notes below. 2. Mild anemia with H&H of 10.4 and 31.4% on 01/25/17. We will continue to observe. 3. Hypo-magnesemia: Patient received 1 g of magnesium IV last night. Mg++ level is 1.9 which is normal range. I am continuing the patient on Magnesium Oxide 400mg Daily. Medicine services to continue to follow. 4. Nutrition: Albumin is reduced to 2.9 so we will see how patient is doing on eating and he may possibly benefit from Ensure. 5. Thrush: Still present, but much better. I will continue Nystatin for another week. TIME SPENT: Chart Review, examination and documentation require greater than 25 minutes. Patient: Enrique Guadalupe : 1960 Age/Sex: 56/M Unit#: [id number] Room/Bed: M4144/01 User: LIZ Santoyo Date: 01/27/17 13:35 Type: OT Progress Time In * 12:40 Time Out * 12:55 OT Treatment Time-Minutes * 15 mins Type of Therapy Provided * Individual Precautions * Fall Unit * Acute Inpatient Rehab Pain Start of Session * 0 Pain End of Session * 0 Pain Comment * Patient denies pain throughout session. Subjective * pt reports he hopes to go home "tomorrow if i can't later today". Cognition * Within Normal Limits Cognition Comments * no cognitive deficits noted, patient complains of fatigue throughout session. Supine to Sit * Independent Sit to Supine * Independent Rolling * Independent Bed Mobility Notes * pt completes bed mobility mod (I). Sit to Stand * Modified Independent Stand to Sit * Modified Independent Chair to Bed * Modified Independent Toilet/Commode * Not Tested Shower/Tub * Not Tested Functional Transfer Notes: * Pt t/f chair to bed, sit to/from stand mod (I) Sit-Static * G Sit-Dynamic * G Stand-Static * G- Stand-Dynamic * F+ Balance Training Note * Balance assessed EOB and with transfer OT Intervention Note * in order to increase functional use of (lt) UE, pt engages in therapeutic exercise to include reaching for target x 15 reps various planes; pt is able to attend to (lt) t/o exercise. pt also engages in isometric elbow flexion, extension, shoulder flexion, resisted cash management clerk x 15 reps (lt) UE. pt continues to demo decreased strength/coordination and arom, however, all remain WFL. pt left in supine with call light in reach at end of session. Discharge Recommendations * Home w/services Patient: Enrique Guadalupe : 1960 Age/Sex: 56/M Unit#: [id number] [facility] User: Bharti Mcclain OT Ssv OT Date: 01/27/17 16:38 Type: OT Progress Time In * 15:10 Time Out * 15:20 OT Treatment Time-Minutes * 10 mins Type of Therapy Provided * Individual Precautions * Fall Unit * Acute Inpatient Rehab Pain Start of Session * 0 Pain End of Session * 0 Pain Comment * Patient denies pain t/o session. Cognition * Within Normal Limits Cognition Comments * no cognitive deficits noted Supine to Sit * Independent Sit to Supine * Independent Rolling * Not Tested Bed Mobility Notes * pt completes bed mobility mod (I). Sit to Stand * Modified Independent Stand to Sit * Modified Independent Bed to Chair * Not Tested Chair to Bed * Not Tested Toilet/Commode * Not Tested Shower/Tub * Not Tested Functional Transfer Notes: * Pt t/f sit to/from stand mod (I) Bathing * Not Tested Dressing-Upper Body * Not Tested Dressing-Lower Body * Not Tested Grooming * Not Tested Toileting * Not Tested Eating * Not Tested Meal Preparation/Home Management * Not Tested ADL Training Note * ADL's done in earlier session with another OTR A. Eating (include only those with PO intake): * 88.Not Attempted Eating Comments: * see ADL note from earlier in day B. Oral Hygiene (includes gums in edentulous pts): * 88.Not Attempted Oral Hygiene Comments: * See ADL note. C. Toileting Hygiene (not transfers): * 88.Not Attempted Toileting Hygiene Comments: * See ADL note. E. Shower/Bathe Self (not transfers, can be sponge bath): * 88.Not Attempted Shower/Bathe Self Comments: * See ADL note. F. Upper Body Dressing (includes bra, not hospital gown): * 88.Not Attempted Upper Body Dressing Comments: * See ADL note. G. Lower Body Dressing (includes briefs and knee braces): * 88.Not Attempted Lower Body Dressing Comments: * See ADL note. H. Putting on/taking off footwear (includes TEDS and AFO): * 88.Not Attempted Putting on/taking off footwear Comments: * see ADL note. Sit-Static * G Sit-Dynamic * G Stand-Static * G- Stand-Dynamic * F+ Balance Training Note * Balance assessed EOB OT Intervention Note * pt engaged in therex with 2# weight in RUE in all planes 2 sets times 10 reps. pt left in supine with call finn reach when OT left his room. OT Goal Note * Cont with OT plan of care Discharge Recommendations * Home w/services Patient: Enrique Guadalupe : 1960 Age/Sex: 56/M Unit#: [id number] Room/Bed: M4144/01 User: Geraldine Rios, PT [facility] PT Date: 01/27/17 12:38 Type: PT Progress Note Time In * 08:50 Time Out * 09:40 PT Treatment Time-Minutes * 50 mins Type of Therapy Provided * Individual Precautions * Fall Unit * Acute Inpatient Rehab Pain Start of Session * 0 Pain End of Session * 0 Pain Comment * Patient denies pain throughout session. Subjective * Pt c/o fatigue. States generally has more energy in afternoon. Requesting to be done with therapy following initial ambulation. Agreed to other activities with goal of demonstrating function for return to home. Cognition * Within Normal Limits Cognition Comments * no cognitive deficits noted, patient complains of fatigue throughout session. Supine to Sit * Independent Sit to Supine * Independent Rolling * Independent Bed Mobility Notes * Became entangled in tubing with sit to supine but able to untangle legs w/o cueing or assist. Sit to Stand * Modified Independent Stand to Sit * Modified Independent Bed to Chair * Modified Independent Chair to Bed * Modified Independent Toilet/Commode * Not Tested Transfer Training Notes * Patient somewhat impulsive with transfers but did not require any physical assist for supine <> sit or SPT bed to chair, chair to mat, chair to chair. Difficulty locking left brake partially due to stiffness of brake. Sit-Static * G Sit-Dynamic * G Stand-Static * G- Stand-Dynamic * F+ Balance Training Note * Balance assessed to gait and transfers Ambulation Distance * 60 Feet Ambulation Level of Assist * Minimum Assist Assistive Device Used * Avtar-Walker * Gait Belt Weight BearingStatus * FWB Left * FWB Right Able to Maintain Weight Bearing Status * Yes - Tactile cues provided to L LE for full extension in standing Gait Training Note * Pt ambualtes 60' x 1 with hemiwalker and gait belt on level. Min assist provided and verbal cues for sequencing of walker, left, right. Inconsistent step length with left and occ placement of hemiwalker too far. Verbal cues to address with fair follow through. Wheelchair Distance * 150 feet Wheelchair Mobility Level of Assist * Standby Assist Wheelchair Mobility Comment * Pt requires frequent cues to use left LE, to keep left LE out from under chair and to attend to left side. Often bumping into rhodes or objects on left side. Able to indep maneuver away from surface but unable to keep straight course. Number of Stairs Completed * 3 Stairs Railing * Yes Railing Side * Right & Left Level of Assist for Stairs * Minimum Assist Stair Training Note * verbal cues for up with the good and down with the bad. attempting to lead with left. A. Roll Left and Right: * 06.Independent B. Sit to Lying: * 06.Independent C. Lying to Sitting on Side of Bed: * 06.Independent D. Sit to Stand: * 06.Independent E. Chair/Ayj-jb-Mjwny Transfer: * 06.Independent Chair/Vhl-iq-Stkog Transfer Comments: * See transfer note. Pt able to manage placement of haney bag indep and without cues. Unable to fully lock brake on left of w/c which is particularly stiff. No phys assist needed. F. Toilet Transfer: * 88.Not Attempted G. Car Transfer: * 88.Not Attempted H. Does the patient walk?: * 2. Yes I. Walk 10 Feet: * 03.Partial/Mod Assist Walk 10 Feet Comments: * SEE GAIT NOTE J. Walk 50' with Two Turns: * 03.Partial/Mod Assist K. Walk 150 Feet: * 88.Not Attempted L. Walking 10' on uneven surfaces: * 88.Not Attempted M. 1 Step (curb): * 88.Not Attempted N. 4 Steps (with or without railing): * 88.Not Attempted O. 12 Steps (with or without railing): * 88.Not Attempted P. Picking up Object from the Floor (from a standing): * 88.Not Attempted Q. Does the patient use a w/c (other than just transport): * 1. Yes R. Wheel 50' with 2 Turns(seated in w/c): * 88.Not Attempted RR. What type of w/c?: * 1. Manual Wheel 50' with 2 Turns Comments: * see wheel chair propulsion note. S. Wheel 150' (seated in w/c): * 88.Not Attempted SS. What type of w/c?: * 1. Manual Lower Extremity Exercised * Bilateral Supine Exercises * Straight Leg Raises Sitting Exercises * Long Arc Quads Other Sitting Exercises * Nu step 4 min level 8 with left UE strapped to maintain position on handle. Number of Reps Sitting * 10-15 Reps Standing Exercises * Hip Abductions Number of Reps Standing * 10-15 Reps Therapeutic Exercises Note * Focus primarily on function. PT Interventions * Gait Training * Functional Training * Bed Mobility * Safety/Precautions PT Progress Note * Patient demonstrated transfers well today. Very anxious to go home and cooperative in order to demonstrate max indep with function. Pt impulsive with movements but did not require physical assist. Ambulation required min assist today but may require w/c for home use at this time. Would benefit from home PT to assess safety when d/c occurs. PT Goal Note * Pt may be safe to begin try step ups with hemiwalker Discharge Recommendations * Home w/services Safe for discharge at this time * No Patient: Enrique Guadalupe : 1960 Age/Sex: 56/M Unit#: [id number] Room/Bed: M4144/01 User: Geraldine Rios, PT [facility] PT Date: 01/27/17 14:54 Type: PT Progress Note Time In * 13:30 Time Out * 14:00 PT Treatment Time-Minutes * 30 mins Type of Therapy Provided * Individual Precautions * Fall Unit * Acute Inpatient Rehab Pain Start of Session * 0 Pain End of Session * 0 Pain Comment * Patient denies pain throughout session. Subjective * Pt agreed to participate. Cognition * Within Normal Limits Cognition Comments * no cognitive deficits noted, patient complains of fatigue throughout session. Supine to Sit * Independent Sit to Supine * Independent Rolling * Independent Bed Mobility Notes * pt completes bed mobility mod (I). Sit to Stand * Modified Independent Stand to Sit * Modified Independent Bed to Chair * Modified Independent Chair to Bed * Modified Independent Toilet/Commode * Not Tested Transfer Training Notes * Patient somewhat impulsive with transfers but did not require any physical assist for supine <> sit or SPT bed to chair apart from reminding about extra catheter bag. Difficulty locking left brake partially due to stiffness of brake. Sit-Static * G Sit-Dynamic * G Stand-Static * G- Stand-Dynamic * F+ Balance Training Note * Balance assessed EOB with transfers and amb. Ambulation Distance * 90 Feet Ambulation Level of Assist * Minimum Assist Assistive Device Used * Avtar-Walker * Gait Belt Weight BearingStatus * FWB Left * FWB Right Able to Maintain Weight Bearing Status * Yes - Tactile cues provided to L LE for full extension in standing Gait Training Note * Pt ambualtes 90' x 1 with hemiwalker and gait belt on level. Min assist provided and verbal cues for sequencing of walker, left, right. Inconsistent step length with left and occ placement of hemiwalker too far. With inc distance drifting to left and v.cues to shift right Wheelchair Distance * 200 feet Wheelchair Mobility Level of Assist * Standby Assist Wheelchair Mobility Comment * Pt requires frequent cues to use left LE, to keep left LE out from under chair and to attend to left side. Attempted ramp with wheelchair with pt requiring mod assist to asc and min assist to control descent. Able to get over small ledge of elevator but dragging left foot. Number of Stairs Completed * 7 Stairs Railing * Yes Railing Side * Right Level of Assist for Stairs * Minimum Assist Stair Training Note * Alt feet going up on both 4" and 6" steps and marking time with descent. Using right railing A. Roll Left and Right: * 06.Independent B. Sit to Lying: * 06.Independent C. Lying to Sitting on Side of Bed: * 06.Independent D. Sit to Stand: * 06.Independent E. Chair/Oba-jp-Nsllc Transfer: * 06.Independent Chair/Ohb-wh-Qrfar Transfer Comments: * See transfer note. Pt able to manage placement of haney bag indep with cues initially to remind of presence. Unable to fully lock brake on left of w/c which is particularly stiff. No phys assist needed. F. Toilet Transfer: * 88.Not Attempted G. Car Transfer: * 88.Not Attempted H. Does the patient walk?: * 2. Yes I. Walk 10 Feet: * 03.Partial/Mod Assist Walk 10 Feet Comments: * SEE GAIT NOTE J. Walk 50' with Two Turns: * 03.Partial/Mod Assist Walk 50' with Two Turns Comments: * 90 FT X 2 WITH min AND W/C FOLLOW K. Walk 150 Feet: * 88.Not Attempted L. Walking 10' on uneven surfaces: * 88.Not Attempted M. 1 Step (curb): * 88.Not Attempted N. 4 Steps (with or without railing): * 03.Partial/Mod Assist O. 12 Steps (with or without railing): * 88.Not Attempted P. Picking up Object from the Floor (from a standing): * 88.Not Attempted Q. Does the patient use a w/c (other than just transport): * 1. Yes R. Wheel 50' with 2 Turns(seated in w/c): * 03.Partial/Mod Assist RR. What type of w/c?: * 1. Manual Wheel 50' with 2 Turns Comments: * see wheel chair propulsion note. S. Wheel 150' (seated in w/c): * 03.Partial/Mod Assist SS. What type of w/c?: * 1. Manual Wheel 150 Feet Comments: * attempted ramp, see note Lower Extremity Exercised * Bilateral Supine Exercises * Straight Leg Raises Sitting Exercises * Long Arc Quads Number of Reps Sitting * 10-15 Reps Standing Exercises * Hip Abductions Number of Reps Standing * 10-15 Reps Therapeutic Exercises Note * Focus primarily on function. PT Interventions * Gait Training * Functional Training * Bed Mobility * Safety/Precautions PT Progress Note * Patient able to complete stair training with some assist. Motivated to ex with goal of returning home. Needs reminders occ to complete treatment. Improved steering with w/c propulsion. Discharge Recommendations * Home w/services Safe for discharge at this time * No Patient: Enrique Guadalupe : 1960 Age/Sex: 56/M Unit#: [id number] Room/Bed: M4144/01 User: Etelvina [facility]ARD [facility] Date: 01/26/17 07:48 Type: [facility]-Dysphagia Manageme... Exercise Education Label * Diet Modification Texture Modification Range of Motion Exercise Effortful Swallow * Other Dysphagia Management Assessed PO trials with strategies implemented prior * Level of Assistance Moderate Assist * Tolerance Excellent * Therapeutic Exercise Yes Compensatory Strategies Pt/Family Education * Therapeutic Exercise Comment Rec Pt. OOB for all meals Allergies Coded Allergies: No Known Allergies (Unverified , 01/19/17) Vital Signs Vital Signs Date Time Temp Pulse Resp B/P (MAP) Pulse Ox O2 Delivery O2 Flow Rate FiO2 01/27/17 09:05 16 01/27/17 08:35 136/81 01/27/17 06:00 97.5 81 99 Room Air Laboratory Data CBC/BMP Laboratory Tests 01/27/17 07:13 Calcium Level 9.0 Labs 24H Laboratory Tests 2 01/27/17 07:13: Anion Gap 7L, Glomerular Filtration Rate > 60.0, Blood Urea Nitrogen 18, Creatinine 1.16, Sodium Level 137, Potassium Level 3.8, Chloride Level 100, Carbon Dioxide Level 30, Calcium Level 9.0, Magnesium Level 1.9 Current Medications Current Medications Current Medications Acetaminophen (Tylenol Tab) 650 mg Q6HP PRN PO PAIN OR FEVER Last administered on 01/21/17 12:47; Start 01/19/17 at 11:45; Stop 02/18/17 at 11:44 Aspirin (Ecotrin) 81 mg DAILY PO Last administered on 01/27/17 08:35; Start 01/20/17 at 09:00; Stop 02/19/17 at 08:59 Atorvastatin Calcium (Lipitor) 80 mg QHS PO Last administered on 01/26/17 20: 25; Start 01/19/17 at 21:00; Stop 02/18/17 at 20:59 Bisacodyl (Dulcolax Tab) 5 mg DAILYPRN PRN PO CONSTIPATION; Start 01/19/17 at 11:45; Stop 02/18/17 at 11:44 Clopidogrel Bisulfate (PLAVix) 75 mg DAILY PO Last administered on 01/27/17 08:35; Start 01/20/17 at 09:00; Stop 02/19/17 at 08:59 Docusate Sodium (Colace) 100 mg BID PO Last administered on 01/23/17 10:30; Start 01/19/17 at 21:00; Stop 01/26/17 at 10:33; Status DC Enoxaparin Sodium (Lovenox) 40 mg DAILY SC Last administered on 01/27/17 08: 34; Start 01/20/17 at 09:00; Stop 02/01/17 at 23:55 Home Med (Med Rec Complete!) ASDIRECTED XX ; Start 01/19/17 at 15:45; Stop at 15:47; Status DC Magnesium Hydroxide (Milk Of Magnesia) 30 ml DAILYPRN PRN PO CONSTIPATION; Start 01/19/17 at 11:45; Stop 02/18/17 at 11:44 Magnesium Oxide (Mag-Ox) 400 mg BID PO Last administered on 01/24/17 08:12; Start 01/21/17 at 09:00; Stop 01/24/17 at 19:40; Status DC Magnesium Oxide (Mag-Ox) 400 mg DAILY PO Last administered on 01/27/17 08:35 ; Start 01/25/17 at 09:00; Stop 02/14/17 at 08:59 Methylphenidate HCl (Ritalin) 2.5 mg BID@0600,1200 PO Last administered on 05:55; Start 01/25/17 at 06:00; Stop 02/01/17 at 05:59 Nifedipine (Procardia Xl) 90 mg DAILY PO Last administered on 01/27/17 08:35 ; Start 01/20/17 at 09:00; Stop 02/19/17 at 08:59 Nystatin (Mycostatin) 5 ml TID SSP Last administered on 01/27/17 08:34; Start 01/20/17 at 09:00; Stop 02/02/17 at 23:55 Pantoprazole Sodium (Protonix) 40 mg DAILY PO Last administered on 01/27/17 08:35; Start 01/20/17 at 09:00; Stop 02/19/17 at 08:59 Sodium Chloride (Saline Lock Flush) 2 ml ASDIRECTED PRN IV SEE LABEL COMMENTS; Start 01/20/17 at 15:15; Stop 01/23/17 at 10:32; Status DC Sodium Chloride (Saline Lock Flush) 2 ml SLF IV Last administered on 14:00; Start 01/20/17 at 22:00; Stop 01/23/17 at 10:32; Status DC Tramadol HCl (Ultram) 50 mg Q4HP PRN PO PAIN (PS 5-10) Last administered on 08:35; Start 01/21/17 at 13:00; Stop 02/02/17 at 23:55 SUJIT DUKE MD Jan 27, 2017 11:16
--- NOTE | 2017-01-27 11:19 | IPNPDOC ---
Date Seen The patient was seen on 01/27/17. Progress Note HPI: This is a 56-year-old male with a prior history of pulmonary embolus, deep vein thrombosis (DVT), prostate cancer with prostatectomy, nephrectomy, status post urostomy bag, was on chronic aspirin at home and presented to [facility] at [facility] due to acute onset of left-sided weakness on 01/15/2017 at 1600 hours with gaze deviation, dysarthria that started at 1600 hours and noted by the . The patient was air lifted via [facility] ambulance to [facility] with presenting blood pressure 160/100, glucose 92. The patient had previously had a right MCA frontal branch territorial infarct in April 2016 with multiple watershed infarcts and had left against medical advice from the stroke service at [facility], taken himself off Xarelto despite recommendations for life long anticoagulation. The patient was found to have occlusion of the right internal carotid artery from its origin throughout his cervical course, as well as occlusion at the right M1 MCA from its origin along the majority of its course. The patient did undergo right ICA stenting with complication of right petrous ICA dissection. The pt was subsequently transferred to the care of AMARA Byrd 01/19/17. The pt is in bed, family members at bedside. Pt with no voiced concerns at this time. Denies any fevers, chills, weakness, fatigue, Headache, Chest Pain, Shortness of breath, cough, palpitations, abdominal pain, N/V/D or changes in bowel or bladder habits. PAST MEDICAL HISTORY: 1. PE. 2. DVT 3. History of prostate cancer, status post prostatectomy. 4. Nephrectomy, status post urostomy bag. 5. Right MCA frontal branch CVA in April 2016, left against medical advice. 6. Echocardiogram saline bubble study on 01/17/2017 showed negative saline bubble study, ejection fraction of 55 to 60%. Trace mild mitral regurgitation. Trace pulmonic regurgitation. Mild tricuspid regurgitation. 7. MRI [facility] showed right MCA infarct and blunted right cerebellar infarct with right basal ganglia hemorrhage PAST SURGICAL HISTORY: 1. Nephrectomy on the right, status post urostomy in January 2017. The patient underwent ICA stenting complicated with a right petrous ICA dissection and right basal ganglia hemorrhage. PE: GEN: 56yoM, thin appearing. No acute distress. Alert and oriented x 3. Pleasant , interactive. HEENT: Normocephalic, atraumatic. Sclera are nonicteric. Conjunctiva without injection. Moist mucous membranes. Dentition fair. Pharynx pink and moist. Neck supple, trachea midline. No lymphadenopathy or thyromegaly appreciated. CHEST: Regular rate and rhythm, +S1, +S2 LUNGS: Clear to auscultation bilaterally. No wheezes, rales, or rhonchi. ABD: Round, soft, non-tender, non-distended. +Bowel sounds throughout. No rebound or guarding. EXT: No lower extremity edema appreciated. SKIN: No rashes. NEURO: Left UE/LE weakness. A&P: 1. Acute ischemic stroke with right basal ganglia hemorrhage Chronic MCA encephalomalacia. Chronic headaches. Right ICA MCA occlusion status post VERONICA with ICA stenting, stenosis of ICA stents. Etiology of the stroke was a large thrombus due to hypercoagulable state. Status post TPA on 01/15/2017. Status post MRE on 01/15/2017. Ultrasound Doppler on 01/16/2017 shows 50 to 69% occlusion of the stent. The patient was given labetalol/hydralazine for blood pressure control aspirin and Plavix. DVT prophylaxis. Lovenox as per ARU attending. PT/OT/ST as per ARU, Dr Oconnor. Pain control as per Dr Oconnor. Bowel care as per Dr Oconnor. Outpt F/U with Neurology/Neurosurgery. 2. HTN. Nifedipine. 3. History of prostate cancer with prostatectomy, status post chemotherapy and nephrectomy with subsequent urostomy. The patient's creatinine is stable. Avoid nephrotoxins and renally dose all medications. 4. Hyperlipidemia. Continue high dose statin. 5. GERD. PPI. VS, I&O, 24H, Fishbone Vital Signs/I&O Vital Signs Date Time Temp Pulse Resp B/P (MAP) Pulse Ox O2 Delivery O2 Flow Rate FiO2 01/27/17 09:05 16 01/27/17 08:35 136/81 01/27/17 06:00 97.5 81 99 Room Air I&O- Last 24 Hours up to 6 AM 01/27/17 06:00 Intake Total 680 ml Output Total 1320 ml Balance -640 ml Laboratory Data 24H LABS Laboratory Tests 2 01/27/17 07:13: Anion Gap 7L, Glomerular Filtration Rate > 60.0, Blood Urea Nitrogen 18, Creatinine 1.16, Sodium Level 137, Potassium Level 3.8, Chloride Level 100, Carbon Dioxide Level 30, Calcium Level 9.0, Magnesium Level 1.9 CBC/BMP Laboratory Tests 01/27/17 07:13 Calcium Level 9.0 Dahlia Garcia Jan 27, 2017 11:19
[2017-01-27 14:00] VITALS: BP 117/73
[2017-01-27] MEDS: BISACODYL 5 MG TAB PO PRN (18:20)
[2017-01-27 20:00] VITALS: BP 146/83
[2017-01-27] MEDS: ATORVASTATIN 20 MG TAB PO SCH (20:37)
[2017-01-27] MEDS ORDERED: traZODone 50 MG TAB PO SCH (21:00)
[2017-01-27 22:09] LABS: MUCUS, URINE RFX SMALL (NEGATIVE); SPECIFIC GRAVITY UR AUTO RFX 1.014 (1.002-1.035); SQUAM EPITHELIAL CELL UR AURFX 0 /HPF (0-6)
[2017-01-28] MEDS: METHYLPHENIDATE 5 MG TAB PO SCH ×2 (05:54→13:21)
[2017-01-28 06:00] VITALS: BP 150/90
[2017-01-28 07:52] LABS: MEAN CORPUSCULAR HEMOGLOBIN 29.2 pg (27.0-33.0); MEAN CORPUSCULAR HGB CONC 33.2 g/dl (32.0-36.5); MEAN CORPUSCULAR VOLUME 87.8 fl (80.0-96.0); PLATELET COUNT, AUTOMATED 302 10^3/uL (150-450); WHITE BLOOD COUNT 10.1 10^3/uL (4.0-10.0)
[2017-01-28 08:24] LABS: ALBUMIN 2.9 GM/DL (3.2-5.2); ALBUMIN/GLOBULIN RATIO 0.62 (1.00-1.93); ALKALINE PHOSPHATASE 95 U/L (45-117); ALT/SGPT 33 U/L (12-78); ANION GAP 7 MEQ/L (8-16); AST/SGOT 20 U/L (7-37); BILIRUBIN,TOTAL 0.3 MG/DL (0.2-1.0); BLOOD UREA NITROGEN 21 MG/DL (7-18); CALCIUM LEVEL 9.1 MG/DL (8.5-10.1); CARBON DIOXIDE LEVEL 30 MEQ/L (21-32); CHLORIDE LEVEL 102 MEQ/L (98-107); GLOMERULAR FILTRATION RATE > 60.0 (>56); GLUCOSE, FASTING 97 MG/DL (70-105); POTASSIUM SERUM 3.8 MEQ/L (3.5-5.1); SODIUM LEVEL 139 MEQ/L (136-145); TOTAL PROTEIN 7.6 GM/DL (6.4-8.2)
[2017-01-28] MEDS: MAGNESIUM OXIDE 400 MG TAB (MAG-OX) PO SCH (08:44)
[2017-01-28] MEDS ORDERED: FLEET ENEMA PR PRN (08:45)
[2017-01-28] MEDS: ASPIRIN 81 MG ENTERIC TAB PO SCH (08:45)
[2017-01-28] MEDS: PANTOPRAZOLE 40MG TAB (PROTONIX) PO SCH (08:45)
[2017-01-28] MEDS: CLOPIDOGREL 75 MG TAB PO SCH (08:45)
[2017-01-28] MEDS: BISACODYL 5 MG TAB PO PRN (08:45)
[2017-01-28] MEDS: NIFEdipine 30 MG XL TAB PO SCH (08:45)
[2017-01-28] MEDS: NYSTATIN 500,000 U/5 ML SUSP UDC SSP SCH ×3 (08:45→20:56)
[2017-01-28] MEDS: ENOXAPARIN 40 MG/0.4 ML SYRINGE (J1650) SC SCH (08:50)
--- NOTE | 2017-01-28 10:16 | IPNPDOC ---
PM&R Progress Note [employer] Salesperson Progress Note DATE OF SERVICE: 01/28/17 DATE OF ADMISSION: Jan 19, 2017 at 13:45 INPATIENT REHABILITATION ADMISSION DAY: #10 SUBJECTIVE: The patient is a 56-year-old white male who has been disabled by multiple medical problems. This right-handed gentleman had prior right MCA stroke in April of 2016, atherosclerotic cardiovascular disease, also including hypertension, hyperlipidemia. The patient also with prior bladder cancer and prostate cancer with prostatectomy and nephrostomy performed and prior carotid artery disease with a stent which occluded. The patient has started in physical, occupational and speech therapy. He does have some dysphagia with troubles having sensation in the left mouth with left facial droop, right tongue deviation, left sensory neglect as well as left hemiparesis with returning tone. Patient starting to decline some therapies. I have reviewed with him his situation as not yet being able to go home safely with his and needing to become more Left body aware and safe in mobility and ADL's, otherwise he will need a safe placement. Patient agrees to participate in the ARU 3 hrs/day program. Patient notes less trouble with sleep last night , but still does not feel he slept well. No expressions of wishing to leave AMA. More calm today. ALLERGIES: See Below MEDICATIONS: Reviewed, see below. OBJECTIVE: VITAL SIGNS: Please see below. PHYSICAL EXAMINATION: GENERAL: Average height slight middle-age white male who looks older than stated age of 56. Patient still tending to lean to the left with some left neglect. It appears to be in no other distress. Patient laying on right side in bed this morning. Overall, he is more calm. HEENT: Left facial droop with right tongue deviation but atraumatic. Thrush still present with less erythema and rutting on tongue. CARDIOVASCULAR: Regular rate and rhythm with normal S1 and S2. 2/4 bilateral radial pulses. LUNGS: [place] clear to auscultation. ABDOMEN: Benign with normal bowel sounds in all quadrants and nephrostomy bag in place. NEUROLOGICAL: Alert and oriented to person, place, general time and situation. Continued return of tone in Left U&LE with more forearm and leg musculature. Still left neglect and some agnosia problems, but sitting up in bed straight on not on left side, and continues to be more alert. SKIN: Grossly intact. LABORATORY DATA: Reviewed. Please see below. MICROBIOLOGY: Please see below. IMAGING: No new imaging. DVT prophylaxis ordered?: Lovenox, aspirin, RIGO hose and sequential compressive stockings. ASSESSMENT AND PLAN: 1. Rehabilitation of CVAs with left hemisensory motor deficits: Patient starting evaluations today with physical, occupational and speech surgical pathologist all achieved. Patient is showing improved left UE control and strength with some hand extrinsic motions. His left neglect/agnosia is better, but still a major limiter of this gentleman. I have started a Ritalin trial with some improvement when I saw him this morning. He is consistently up more. However, he needs to sit up in a chair for meals. I will add tramadol 50 mg po QHS to facilitate sleep. This should also enhance the Ritalin effect. He requires more support than his is currently able to provide. The team still feels patient has Anticipated Date of Discharge to home with family is 02/04/17. The director of career resources and I will meet with patient's . I feel the trazodone helped, but needs to be increased it to 100mg QHS. 2. Mild anemia with H&H of 10.5 and 31.6% on 01/28/17. We will continue to observe. 3. Hypo-magnesemia: Patient received 1 g of magnesium IV last night. Mg++ level is 1.9 which is normal range. I am continuing the patient on Magnesium Oxide 400mg Daily. Medicine services to continue to follow. 4. Nutrition: Albumin is reduced to 2.9 on 01/28/17, so we will see how patient is doing on eating and he may possibly benefit from Ensure. 5. Thrush: Still present, but much better. I will continue Nystatin for another week from 01/27/17. 6. Renal: Cloudy urine in urostomy bag. Uc&s pending. TIME SPENT: Chart Review, examination and documentation require greater than 25 minutes. Allergies Coded Allergies: No Known Allergies (Unverified , 01/19/17) Vital Signs Vital Signs Date Time Temp Pulse Resp B/P (MAP) Pulse Ox O2 Delivery O2 Flow Rate FiO2 01/28/17 08:45 150/90 01/28/17 06:00 97.5 79 20 96 Room Air Laboratory Data CBC/BMP Laboratory Tests 01/28/17 07:25 Red Blood Count 3.60 L, Mean Corpuscular Volume 87.8, Mean Corpuscular Hemoglobin 29.2, Mean Corpuscular Hemoglobin Concent 33.2, Red Cell Distribution Width 14.0, Calcium Level 9.1, Aspartate Amino Transf (AST/SGOT) 20 , Alanine Aminotransferase (ALT/SGPT) 33, Alkaline Phosphatase 95, Total Bilirubin 0.3, Total Protein 7.6, Albumin 2.9 L Labs 24H Laboratory Tests 2 01/27/17 21:49: Urine Color YELLOW, Urine Appearance CLOUDYH, Urine pH 6.0, Urine Specific [place] 1.014, Urine Protein 1+H, Urine Glucose (UA) NEGATIVE, Urine Ketones NEGATIVE, Urine Blood 1+H, Urine Nitrite POSITIVEH, Urine Bilirubin NEGATIVE, Urine Urobilinogen 0.2, Urine Leukocyte Esterase 3+H, Urine WBC (Auto) 99H, Urine RBC (Auto) 9H, Urine Hyaline Casts (Auto) 4, Urine Bacteria (Auto) 3+H, Urine Squamous Epithelial Cells 0, Urine Mucus (Auto) SMALL, Urine Sperm (Auto) 01/28/17 07:25: Nucleated Red Blood Cells % (auto) 0.0, Anion Gap 7L, Glomerular Filtration Rate > 60.0, Blood Urea Nitrogen 21H, Creatinine 1.20, Sodium Level 139, Potassium Level 3.8, Chloride Level 102, Carbon Dioxide Level 30, Calcium Level 9.1, Aspartate Amino Transf (AST/SGOT) 20, Alanine Aminotransferase (ALT/SGPT) 33, Alkaline Phosphatase 95, Total Bilirubin 0.3, Total Protein 7.6, Albumin 2.9L, Albumin/Globulin Ratio 0.62L Microbiology Microbiology 01/27/17 Urine Culture, Received Pending Current Medications Current Medications Current Medications Acetaminophen (Tylenol Tab) 650 mg Q6HP PRN PO PAIN OR FEVER Last administered on 01/21/17 12:47; Start 01/19/17 at 11:45; Stop 02/18/17 at 11:44 Aspirin (Ecotrin) 81 mg DAILY PO Last administered on 01/28/17 08:45; Start 01/20/17 at 09:00; Stop 02/19/17 at 08:59 Atorvastatin Calcium (Lipitor) 80 mg QHS PO Last administered on 01/27/17 20: 37; Start 01/19/17 at 21:00; Stop 02/18/17 at 20:59 Bisacodyl (Dulcolax Tab) 5 mg DAILYPRN PRN PO CONSTIPATION Last administered on 01/28/17 08:45; Start 01/19/17 at 11:45; Stop 02/18/17 at 11:44 Clopidogrel Bisulfate (PLAVix) 75 mg DAILY PO Last administered on 01/28/17 08:45; Start 01/20/17 at 09:00; Stop 02/19/17 at 08:59 Docusate Sodium (Colace) 100 mg BID PO Last administered on 01/23/17 10:30; Start 01/19/17 at 21:00; Stop 01/26/17 at 10:33; Status DC Enoxaparin Sodium (Lovenox) 40 mg DAILY SC Last administered on 01/28/17 08: 50; Start 01/20/17 at 09:00; Stop 02/04/17 at 23:55 Home Med (Med Rec Complete!) ASDIRECTED XX ; Start 01/19/17 at 15:45; Stop at 15:47; Status DC Magnesium Hydroxide (Milk Of Magnesia) 30 ml DAILYPRN PRN PO CONSTIPATION Last administered on 01/28/17 08:45; Start 01/19/17 at 11:45; Stop 02/18/17 at 11: 44 Magnesium Oxide (Mag-Ox) 400 mg BID PO Last administered on 01/24/17 08:12; Start 01/21/17 at 09:00; Stop 01/24/17 at 19:40; Status DC Magnesium Oxide (Mag-Ox) 400 mg DAILY PO Last administered on 01/28/17 08:44 ; Start 01/25/17 at 09:00; Stop 02/14/17 at 08:59 Methylphenidate HCl (Ritalin) 2.5 mg BID@0600,1200 PO Last administered on 05:54; Start 01/25/17 at 06:00; Stop 02/04/17 at 05:59 Nifedipine (Procardia Xl) 90 mg DAILY PO Last administered on 01/28/17 08:45 ; Start 01/20/17 at 09:00; Stop 02/19/17 at 08:59 Nystatin (Mycostatin) 5 ml TID SSP Last administered on 01/28/17 08:45; Start 01/20/17 at 09:00; Stop 02/02/17 at 23:55 Pantoprazole Sodium (Protonix) 40 mg DAILY PO Last administered on 01/28/17 08:45; Start 01/20/17 at 09:00; Stop 02/19/17 at 08:59 Sodium Biphosphate/ Sodium Phosphate (Fleet Enema) 1 ENEMA DAILYPRN PRN [place] CONSTIPATION; Start 01/28/17 at 08:45; Stop 02/27/17 at 08:44 Sodium Chloride (Saline Lock Flush) 2 ml ASDIRECTED PRN IV SEE LABEL COMMENTS; Start 01/20/17 at 15:15; Stop 01/23/17 at 10:32; Status DC Sodium Chloride (Saline Lock Flush) 2 ml SLF IV Last administered on 14:00; Start 01/20/17 at 22:00; Stop 01/23/17 at 10:32; Status DC Tramadol HCl (Ultram) 50 mg Q4HP PRN PO PAIN (PS 5-10) Last administered on 08:35; Start 01/21/17 at 13:00; Stop 02/04/17 at 23:55 Trazodone HCl (Desyrel) 50 mg QHS PO Last administered on 01/27/17 20:37; Start 01/27/17 at 21:00; Stop 02/26/17 at 20:59 SUJIT DUKE MD Jan 28, 2017 10:16
--- NOTE | 2017-01-28 11:12 | IPNPDOC ---
Date Seen The patient was seen on 01/28/17. Progress Note HPI: This is a 56-year-old male with a prior history of pulmonary embolus, deep vein thrombosis (DVT), prostate cancer with prostatectomy, nephrectomy, status post urostomy bag, was on chronic aspirin at home and presented to [facility] due to acute onset of left-sided weakness on 01/15/2017 at 1600 hours with gaze deviation, dysarthria that started at 1600 hours and noted by the . The patient was air lifted via [facility] ambulance to [facility] with presenting blood pressure 160/100, glucose 92. The patient had previously had a right MCA frontal branch territorial infarct in April 2016 with multiple watershed infarcts and had left against medical advice from the stroke service at [facility], taken himself off Xarelto despite recommendations for life long anticoagulation. The patient was found to have occlusion of the right internal carotid artery from its origin throughout his cervical course, as well as occlusion at the right M1 MCA from its origin along the majority of its course. The patient did undergo right ICA stenting with complication of right petrous ICA dissection. The pt was subsequently transferred to the care of AMARA Byrd 01/19/17. The pt is in bed currently. Offers no complaints at this time. Per nursing, Pt was acting somewhat confused 01/27 and was noted to be in a different room. Labs were updated, UA obtained. Pt has had constipation, bowel care given. Denies any pain. States he has been eating and drinking. Denies any fevers, chills, weakness, fatigue, Headache, Chest Pain, Shortness of breath, cough, palpitations, abdominal pain, N/V/D or changes in bowel or bladder habits. PAST MEDICAL HISTORY: 1. PE. 2. DVT 3. History of prostate cancer, status post prostatectomy. 4. Nephrectomy, status post urostomy bag. 5. Right MCA frontal branch CVA in April 2016, left against medical advice. 6. Echocardiogram saline bubble study on 01/17/2017 showed negative saline bubble study, ejection fraction of 55 to 60%. Trace mild mitral regurgitation. Trace pulmonic regurgitation. Mild tricuspid regurgitation. 7. MRI [facility] showed right MCA infarct and blunted right cerebellar infarct with right basal ganglia hemorrhage PAST SURGICAL HISTORY: 1. Nephrectomy on the right, status post urostomy in January 2017. The patient underwent ICA stenting complicated with a right petrous ICA dissection and right basal ganglia hemorrhage. PE: GEN: 56yoM, thin appearing. No acute distress. Alert and oriented x 3. Flat affect, answers with 1-2 word answers. HEENT: Normocephalic, atraumatic. Sclera are nonicteric. Conjunctiva without injection. Moist mucous membranes. Dentition fair. Pharynx pink and moist. Neck supple, trachea midline. No lymphadenopathy or thyromegaly appreciated. CHEST: Regular rate and rhythm, +S1, +S2 LUNGS: Clear to auscultation bilaterally. No wheezes, rales, or rhonchi. ABD: Round, soft, non-tender, non-distended. +Bowel sounds throughout. No rebound or guarding. EXT: No lower extremity edema appreciated. SKIN: No rashes. NEURO: Left UE/LE weakness. A&P: 1. Acute ischemic stroke with right basal ganglia hemorrhage Chronic MCA encephalomalacia. Chronic headaches. Right ICA MCA occlusion status post VERONICA with ICA stenting, stenosis of ICA stents. Etiology of the stroke was a large thrombus due to hypercoagulable state. Status post TPA on 01/15/2017. Status post MRE on 01/15/2017. Ultrasound Doppler on 01/16/2017 shows 50 to 69% occlusion of the stent. The patient was given labetalol/hydralazine for blood pressure control, aspirin 81mg and Plavix. DVT prophylaxis. Lovenox as per ARU attending. PT/OT/ST as per Dr Elvin MALONEY. Pain control as per Dr Oconnor. Bowel care as per Dr Oconnor. Outpt F/U with Neurology/Neurosurgery. Disposition as per Dr Elvin MALONEY. 2. HTN. Nifedipine. SBP 117-150. 3. History of prostate cancer with prostatectomy, status post chemotherapy and nephrectomy with subsequent urostomy. The patient's creatinine is stable. Avoid nephrotoxins and renally dose all medications. UC pending. 4. Hyperlipidemia. Continue high dose statin. 5. GERD. PPI. 6. Mild leukocytosis. WBC 10.1. Pt afebrile. Monitor labs. UC pending. VS, I&O, 24H, Fishbone Vital Signs/I&O Vital Signs Date Time Temp Pulse Resp B/P (MAP) Pulse Ox O2 Delivery O2 Flow Rate FiO2 01/28/17 08:45 150/90 01/28/17 06:00 97.5 79 20 96 Room Air I&O- Last 24 Hours up to 6 AM 01/28/17 06:00 Intake Total 700 ml Output Total 1745 ml Balance -1045 ml Laboratory Data 24H LABS Laboratory Tests 2 01/27/17 21:49: Urine Color YELLOW, Urine Appearance CLOUDYH, Urine pH 6.0, Urine Specific [place] 1.014, Urine Protein 1+H, Urine Glucose (UA) NEGATIVE, Urine Ketones NEGATIVE, Urine Blood 1+H, Urine Nitrite POSITIVEH, Urine Bilirubin NEGATIVE, Urine Urobilinogen 0.2, Urine Leukocyte Esterase 3+H, Urine WBC (Auto) 99H, Urine RBC (Auto) 9H, Urine Hyaline Casts (Auto) 4, Urine Bacteria (Auto) 3+H, Urine Squamous Epithelial Cells 0, Urine Mucus (Auto) SMALL, Urine Sperm (Auto) 01/28/17 07:25: Nucleated Red Blood Cells % (auto) 0.0, Anion Gap 7L, Glomerular Filtration Rate > 60.0, Blood Urea Nitrogen 21H, Creatinine 1.20, Sodium Level 139, Potassium Level 3.8, Chloride Level 102, Carbon Dioxide Level 30, Calcium Level 9.1, Aspartate Amino Transf (AST/SGOT) 20, Alanine Aminotransferase (ALT/SGPT) 33, Alkaline Phosphatase 95, Total Bilirubin 0.3, Total Protein 7.6, Albumin 2.9L, Albumin/Globulin Ratio 0.62L CBC/BMP Laboratory Tests 01/28/17 07:25 Red Blood Count 3.60 L, Mean Corpuscular Volume 87.8, Mean Corpuscular Hemoglobin 29.2, Mean Corpuscular Hemoglobin Concent 33.2, Red Cell Distribution Width 14.0, Calcium Level 9.1, Aspartate Amino Transf (AST/SGOT) 20 , Alanine Aminotransferase (ALT/SGPT) 33, Alkaline Phosphatase 95, Total Bilirubin 0.3, Total Protein 7.6, Albumin 2.9 L Microbiology Microbiology 01/27/17 Urine Culture, Received Pending Dahlia Garcia Jan 28, 2017 11:12
[2017-01-28 14:00] VITALS: BP 141/80
[2017-01-28 20:00] VITALS: BP 114/64
[2017-01-28] MEDS: traZODone 100 MG TAB PO SCH (20:55)
[2017-01-28] MEDS: ATORVASTATIN 20 MG TAB PO SCH (20:55)
[2017-01-28] MEDS: traMADol 50 MG TAB PO PRN (20:56)
[2017-01-29] MEDS: traMADol 50 MG TAB PO PRN ×2 (06:25→20:43)
[2017-01-29] MEDS: METHYLPHENIDATE 5 MG TAB PO SCH ×2 (06:25→12:14)
[2017-01-29] MEDS: ASPIRIN 81 MG ENTERIC TAB PO SCH (07:56)
[2017-01-29] MEDS: CLOPIDOGREL 75 MG TAB PO SCH (07:56)
[2017-01-29] MEDS: NIFEdipine 30 MG XL TAB PO SCH (07:56)
[2017-01-29] MEDS: MAGNESIUM OXIDE 400 MG TAB (MAG-OX) PO SCH (07:56)
[2017-01-29] MEDS: PANTOPRAZOLE 40MG TAB (PROTONIX) PO SCH (07:56)
[2017-01-29] MEDS: NYSTATIN 500,000 U/5 ML SUSP UDC SSP SCH ×3 (07:57→20:43)
[2017-01-29] MEDS: ENOXAPARIN 40 MG/0.4 ML SYRINGE (J1650) SC SCH (07:57)
[2017-01-29 14:00] VITALS: BP 118/80
[2017-01-29 20:00] VITALS: BP 138/62
[2017-01-29] MEDS: ATORVASTATIN 20 MG TAB PO SCH (20:42)
[2017-01-29] MEDS: traZODone 100 MG TAB PO SCH (20:42)
[2017-01-30] MEDS: METHYLPHENIDATE 5 MG TAB PO SCH ×2 (06:11→11:59)
[2017-01-30] MEDS: NYSTATIN 500,000 U/5 ML SUSP UDC SSP SCH (08:24)
[2017-01-30 08:25] VITALS: BP 150/90
[2017-01-30] MEDS: NIFEdipine 30 MG XL TAB PO SCH (08:25)
[2017-01-30] MEDS: PANTOPRAZOLE 40MG TAB (PROTONIX) PO SCH (08:25)
[2017-01-30] MEDS: ASPIRIN 81 MG ENTERIC TAB PO SCH (08:25)
[2017-01-30] MEDS: CLOPIDOGREL 75 MG TAB PO SCH (08:25)
[2017-01-30] MEDS: MAGNESIUM OXIDE 400 MG TAB (MAG-OX) PO SCH (08:26)
[2017-01-30] MEDS: ENOXAPARIN 40 MG/0.4 ML SYRINGE (J1650) SC SCH (08:26)
--- NOTE | 2017-02-02 16:09 | PMRDS ---
DATE OF ADMISSION: 01/19/2017 DATE OF DISCHARGE: 01/30/2017 DISCHARGE DIAGNOSES: Multiple ischemic cerebrovascular accidents (CVAs) including basal ganglia, and thrombosis right middle cerebral artery with secondary watershed events. HISTORY: The patient is a 56-year-old white male with prior debilitation and mechanical events including extensive atherosclerotic cardiovascular disease, including chronic ischemic right CVA, which he also chose not to complete hospital course. The patient had new onset of symptoms on 01/15/2017 and was taken to [facility] for breakdown of the clot due to immediate onset of it. Was found to be appropriate. However, then he had a number of watershed events. The patient had notable left neglect, mild left weakness, dysarthria, dysphasia, left visual field cuts, carotid stent occlusion, basal ganglia hemorrhage and acute non intractable headache with prior right middle cerebral artery stroke, hypertension, hyperlipidemia, tobacco use disorder, cerebral edema, bladder cancer, prostate cancer, status post nephrostomy placement. The patient himself discontinued from Xarelto in spite of his pulmonary embolism (PE) and deep venous thrombosis (DVT) history. He agreed to acute intensive rehabilitation and was transferred on 01/19/2017 and was started on physical, occupational and speech therapy. The patient was making some progress in these, however, was not proceeding fast enough to meet his self-imposed goal of being home for [employer]. The patient was unable to provide any rational reason why he had to be home for [place] other than wanting to be. Nor could he express his deficits and why he could work through them other then his would take care of things. The patient's did elect to take him in discharge on 01/30/2017. No medications for the discharge, against medical advice (AMA) order was not written and the patient left the hospital. There is no organized discharge plans or instructions other than those previously given to patient at [facility] where he should see his primary care within one to two weeks and Dr. Wright in neuro-interventional clinic in six weeks with a repeat ultrasound Doppler of the right carotid prior to the appointment.
== END 2017-01-30 12:15 | disposition left against medical advice (07) | DRG 57 ==
LOC: M PM&R 13:45
PROVIDERS: ADMIT Physical Medicine & Rehabilitation; ATTEND Physical Medicine & Rehabilitation
DX: I69.991 Dysphagia following unspecified cerebrovascular disease (principal); B37.0 Candidal stomatitis; I69.352 Hemiplegia and hemiparesis following cerebral infarction affecting left dominant side; I69.354 Hemiplegia and hemiparesis following cerebral infarction affecting left non-dominant side; I69.122 Dysarthria following nontraumatic intracerebral hemorrhage; I70.209 Unspecified atherosclerosis of native arteries of extremities, unspecified extremity; I10 Essential (primary) hypertension; E78.5 Hyperlipidemia, unspecified; Z85.51 Personal history of malignant neoplasm of bladder; Z85.46 Personal history of malignant neoplasm of prostate; Z79.899 Other long term (current) drug therapy; Z93.6 Other artificial openings of urinary tract status; Z86.711 Personal history of pulmonary embolism; Z86.718 Personal history of other venous thrombosis and embolism; D64.9 Anemia, unspecified; E83.42 Hypomagnesemia

== ENCOUNTER 2023-09-22 08:38 | Day surgery (SDC) | payer MEDICARE ==
[~2023-09-22] VITALS: Ht 180.3 cm; Wt 81.9 kg
[~2023-09-22 08:38] MED LIST: ACET1TAB55 PO; ASPI81TA26 PO; ATOR80TA59 PO; ATROPINE SULFATE 1% OPHTH SOLN 2ML BTL OD SCH; CLOP75TA2 PO; ENOX40IN3 SC; HYDR20VI2 IV; NICO21DI34 TD; NIFE1TAB50 PO; NORT25CA2 PO; PANT40TA29 PO; PHENYLEPHRINE 10% OPHTH SOL 5ML OD PRN; PHENYLEPHRINE 2.5% OPHTH SOL 2ML OD SCH; PRED10TA2 PO; PROT40IN4 IV; TROPICAMIDE 1% OPHTH SOLN 15ML OD SCH
[2023-09-22] MEDS: LIDOCAINE 3.5 % 1ML OPHTH TOPICAL GEL OU ONE ×2 (09:12→09:13)
[2023-09-22] MEDS: OFLOXACIN 0.3 % (OCUFLOX) OPTH SOL 5ML OD ONE ×2 (09:12)
[2023-09-22] MEDS: ATROPINE SULFATE 1% OPHTH SOLN 2ML BTL OD SCH (09:13)
[2023-09-22] MEDS: TROPICAMIDE 1% OPHTH SOLN 15ML OD SCH (09:13)
[2023-09-22] MEDS: PHENYLEPHRINE 2.5% OPHTH SOL 2ML OD SCH (09:13)
[2023-09-22] MEDS ORDERED: fentaNYL 100 MCG/2 ML INJECTION As Ordered ONE (10:06)
[2023-09-22] MEDS ORDERED: MIDAZOLAM INJ 2MG/2ML VIAL As Ordered ONE (10:06)
[2023-09-22] MEDS: LIDOCAINE 1% SDV 5ML VIAL As Ordered ONE (10:31)
[2023-09-22] MEDS: CEFUROXIME 1MG/0.1ML INTRACAMERAL INJ As Ordered ONE (10:31)
[2023-09-22] MEDS: BSS IRRIG/VANCO(10MG)/TOBRA(5MG)/EPINEPH(1:1000-0.5CC)500ML BAG-ORONLY As Ordered ONE (10:31)
[2023-09-22] MEDS ORDERED: LIDOCAINE 2% 100MG/5ML SDV (FOR ANES.) As Ordered ONE (10:38)
[2023-09-22] MEDS ORDERED: propofoL 200 MG/20 ML VIAL As Ordered ONE (10:38)
[2023-09-22] MEDS: CARBACHOL 0.01% OPHTH SOLN 1.5ML VIAL As Ordered ONE (10:40)
[2023-09-22 12:00] VITALS: BP 187/105; TEMP 97.2; O2SAT 93
== END 2023-09-22 12:30 | disposition home or self-care (01) ==
LOC: M SDC 08:38
PROVIDERS: ATTEND Ophthalmology
DX: H25.11 Age-related nuclear cataract, right eye (principal); I10 Essential (primary) hypertension; E78.00 Pure hypercholesterolemia, unspecified; N28.9 Disorder of kidney and ureter, unspecified; Z79.02 Long term (current) use of antithrombotics/antiplatelets; Z79.899 Other long term (current) drug therapy; M06.9 Rheumatoid arthritis, unspecified; Z86.73 Personal history of transient ischemic attack (TIA), and cerebral infarction without residual deficits; Z95.5 Presence of coronary angioplasty implant and graft; Z85.46 Personal history of malignant neoplasm of prostate; F17.210 Nicotine dependence, cigarettes, uncomplicated; Z92.21 Personal history of antineoplastic chemotherapy; Z90.79 Acquired absence of other genital organ(s); Z93.6 Other artificial openings of urinary tract status; Z90.6 Acquired absence of other parts of urinary tract; K21.9 Gastro-esophageal reflux disease without esophagitis
CPT/HCPCS: 66984; J0697; J2250; J3010; V2632